=== PATIENT | male | born 1980 | race Caucasian/White ===

== ENCOUNTER 2017-01-08 17:14 | Inpatient (IN) | payer MEDICARE, OTHER ==
[~2017-01-08] VITALS: Ht 172.7 cm; Wt 85.9 kg
[~2017-01-08 17:14] MED LIST: DIVA250ER PO; LEVO125T4 PO; SERO300T PO; ZOLO100T PO
[2017-01-08 17:26] VITALS: BP 181/105; PULSE 100; RESP 15; TEMP 98.2; O2SAT 99
[2017-01-08 18:39] VITALS: BP 145/98; PULSE 111; RESP 20; TEMP 97.7; O2SAT 100
--- NOTE | 2017-01-08 19:01 | PD ---
HPI Chief Complaint: Psychiatric Symptoms Time Seen by Provider: 18:58 Travel History International Travel<30 days: No Contact w/Intl Traveler<30days: No Traveled to known affect area: No History of Present Illness HPI 36-year-old male that presents to the ED for evaluation of psych evaluation. Patient was [place] acted by police after apparently he made suicidal statements to his family. Patient states that he wants to . Patient has some history of anxiety and depression as well as some behavioral issues. Per patient he is compliant with medications. He states that he feels depressed and has suicidal ideation but no actual plan. He denies any homicidal ideation. He denies any recent injuries or cuts. He denies any other medical problems. No drugs or alcohol. No hallucinations. Per patient his symptoms are moderate. He has not seen a psychiatrist for this. Police was contacted and brought him here. Symptoms have been worsening for the past couple of days. PFSH Past Medical History Bipolar Disorder: Yes Depression: Yes Diminished Hearing: No Hiatal Hernia: Yes Thyroid Disease: Yes (HYPO) Past Surgical History Appendectomy: Yes Social History Alcohol Use: No Tobacco Use: No Substance Use: No (PATIENT DENIES) Allergies-Medications (Allergen,Severity, Reaction): Coded Allergies: No Known Allergies (Verified , 10/05/16) Reported Meds & Prescriptions Reported Meds & Active Scripts Active Reported Levothyroxine (Levothyroxine Sodium) 125 Mcg Tab 125 Mcg PO DAILY Zoloft (Sertraline HCl) 100 Mg Tab 100 Mg PO DAILY Seroquel (Quetiapine Fumarate) 300 Mg Tab 300 Mg PO DAILY Depakote ER (Divalproex Sodium) 250 Mg Criss 250 Mg PO DAILY Review of Systems General / Constitutional: No: Fever, Chills, Weight Gain, Weight Loss, Other Eyes: No: Diploplia, Blurred Vision, Photophobia, Drainage, Redness, Foreign Body Sensation, Pain, Tearing, Blind Spots, Visual changes, Blindness, Other HENT: No: Headaches, Vertigo, Lightheadedness, Sore Throat, Rhinitis, Rhinorrhea, Congestion, Nosebleed, Neck Stiffness, Neck Pain, Masses, Gingival Bleeding, Dental Difficulties, Ear Discharge, Earache, Other Cardiovascular: No: Chest Pain or Discomfort, Palpitations, Irregular Rhythm, Tachycardia, Diaphoresis, Syncope, Dyspnea on exertion, Varicosities, Edema, Cyanosis, Varicosities, Phlebitis, Claudication, Other Respiratory: No: Cough, Shortness of Breath, Wheezing, Sneezing, Orthopnea, Hemoptysis, Stridor, Night Sweats, Pleuritic Pain, Other Gastrointestinal: No: Nausea, Vomiting, Diarrhea, Abdominal Pain, Hematemesis, Hematochezia, Constipation, Changes in Bowel Habits, Indigestion, Dysphagia, Loss of Appetite, Other Genitourinary: No: Urgency, Frequency, Dysuria, Nocturia, Hematuria, Decreased Urinary Output, Oliguria, Hesitancy, Dribbling, Incontinence, Pelvic Pain, Flank Pain, Dyspareunia, Discharge, Dysmenorrhea, Menorrhagia, Metorrhagia, Vaginal Bleeding, Other Musculoskeletal: No: Myalgias, Arthralgias, Limited ROM, Weakness, Cramping, Edema, Pain, Atrophy, Other Skin: No Rash, No Itching, No Dryness, No Lumps, No Hives, No Change in Pigmentation, No Change in nails, No Alopecia, No Lesions, No Breast Lumps, No Breast Tenderness, No Breast Swelling, No Other Neurologic: No: Weakness, Dizziness, Syncope, Focal Abnormalities, Coordination Problem, Tremor, Ataxia, Headache, Change in Mentation, Slurred Speech, Paresthesia, Incontinence, Seizures, Sensory Disturbance, Other Psychiatric: Positive: Depression, Suicidal Ideations, Mood Disorder, No: Anxiety, Disorder of Thought, Substance Abuse, Homicidal Ideation, Other Endocrine: No: Heat Intolerance, Cold Intolerance, Polyuria, Polydipsia, Other Hematologic/Lymphatic: No: Easy Bruising, Lymph Node Enlargement, Other Physical Exam Narrative GENERAL: SKIN: Warm and dry. HEAD: Atraumatic. Normocephalic. EYES: Pupils equal and round. No scleral icterus. No injection or drainage. ENT: No nasal bleeding or discharge. Mucous membranes pink and moist. Tongue is midline. No uvula deviation. NECK: Trachea midline. No JVD. CARDIOVASCULAR: Regular rate and rhythm. No murmurs, S3, S4. RESPIRATORY: No accessory muscle use. Clear to auscultation. Breath sounds equal bilaterally. GASTROINTESTINAL: Abdomen soft, non-tender, nondistended. Hepatic and splenic margins not palpable. MUSCULOSKELETAL: Extremities without clubbing, cyanosis, or edema. No obvious deformities. Full range of motion of the upper and lower extremities bilaterally. 2+ pulses bilaterally. Neurovascular intact. NEUROLOGICAL: Awake and alert. No obvious cranial nerve deficits. Motor grossly within normal limits. Five out of 5 muscle strength in the arms and legs. Normal speech. PSYCHIATRIC: Depressed mood and affect; insight and judgment normal. Data Data Last Documented VS Vital Signs Date Time Temp Pulse Resp B/P Pulse Ox O2 Delivery O2 Flow Rate FiO2 01/08/17 18:39 97.7 111 20 145/98 100 Room Air Orders Complete Blood Count With Diff (01/08/17 17:49) Comprehensive Metabolic Panel (01/08/17 17:49) Psych Screen (01/08/17 17:49) Drug Screen, Random Urine (01/08/17 17:49) Alcohol (Ethanol) (01/08/17 17:49) Diet Regular Basic (01/08/17 Dinner) Labs Laboratory Tests Test 01/08/17 01/08/17 18:15 18:30 Urine Opiates Screen NEG Urine Barbiturates Screen NEG Urine Amphetamines Screen NEG Urine Benzodiazepines Screen POS Urine Cocaine Screen NEG Urine Cannabinoids Screen NEG White Blood Count 11.6 TH/MM3 Red Blood Count 4.53 MIL/MM3 Hemoglobin 13.6 GM/DL Hematocrit 39.8 % Mean Corpuscular Volume 87.8 FL Mean Corpuscular Hemoglobin 30.1 PG Mean Corpuscular Hemoglobin 34.3 % Concent Red Cell Distribution Width 13.0 % Platelet Count 220 TH/MM3 Mean Platelet Volume 9.5 FL Neutrophils (%) (Auto) 78.4 % Lymphocytes (%) (Auto) 16.4 % Monocytes (%) (Auto) 4.5 % Eosinophils (%) (Auto) 0.4 % Basophils (%) (Auto) 0.3 % Neutrophils # (Auto) 9.1 TH/MM3 Lymphocytes # (Auto) 1.9 TH/MM3 Monocytes # (Auto) 0.5 TH/MM3 Eosinophils # (Auto) 0.0 TH/MM3 Basophils # (Auto) 0.0 TH/MM3 CBC Comment AUTO DIFF Sodium Level 138 MEQ/L Potassium Level 4.1 MEQ/L Chloride Level 101 MEQ/L Carbon Dioxide Level 28.4 MEQ/L Anion Gap 9 MEQ/L Blood Urea Nitrogen 17 MG/DL Creatinine 1.16 MG/DL Estimat Glomerular Filtration 71 ML/MIN Rate Random Glucose 101 MG/DL Calcium Level 8.9 MG/DL Total Bilirubin 0.3 MG/DL Aspartate Amino Transf 15 U/L (AST/SGOT) Alanine Aminotransferase 32 U/L (ALT/SGPT) Alkaline Phosphatase 78 U/L Total Protein 8.5 GM/DL Albumin 4.3 GM/DL Ethyl Alcohol Level LESS THAN 3 MG/DL MDM Medical Decision Making Medical Screen Exam Complete: Yes Emergency Medical Condition: Yes Medical Record Reviewed: Yes Interpretation(s) CBC & BMP Diagram 01/08/17 18:30 Tox screen positive for benzos. LFTs within limits. Differential Diagnosis Depression versus suicidal ideation versus anxiety versus adjustment disorder versus mood disorder versus bipolar disorder versus schizophrenia versus paranoid disorder versus psychosis versus substance abuse versus alcohol abuse versus alcohol induced psychosis versus homicidality addition versus cutting versus personality disorder Narrative Course 36-year-old male that presents to the ED for evaluation of psych. Patient was properly examined and was found to have signs and symptoms consistent with psychiatric illness. No sign of acute medical distress. Labs were drawn. Patient will be medically clear. Okay to be seen by psych. Mental health screening was discussed with the patient. Diagnosis Primary Impression: Bipolar disorder Qualified Code: F31.32 - Bipolar affective disorder, currently depressed, moderate Jag Dominguez Jan 08, 2017 19:01
[2017-01-08 19:03] LABS: AMPHETAMINE, URINE NEG (NEG); BARBITURATES, URINE NEG (NEG); COCAINE, URINE NEG (NEG)
[2017-01-08 19:06] LABS: AUTOMATED NEUTROPHIL # 9.1 TH/MM3 (1.8-7.7); BASOPHIL % 0.3 % (0.0-2.0); EOSINOPHIL % 0.4 % (0.0-4.0); HEMATOCRIT 39.8 % (39.0-51.0); LYMPH % 16.4 % (9.0-44.0); LYMPHOCYTE # 1.9 TH/MM3 (1.0-4.8); MEAN CELL VOLUME 87.8 FL (80.0-100.0); MEAN CORPUSCULAR HEMOGLOBIN 30.1 PG (27.0-34.0); MEAN CORPUSCULAR HGB CONC 34.3 % (32.0-36.0); MONO % 4.5 % (0.0-8.0); NEUT % 78.4 % (16.0-70.0); PLATELET COUNT 220 TH/MM3 (150-450); RED BLOOD COUNT 4.53 MIL/MM3 (4.50-5.90); WHITE BLOOD COUNT 11.6 TH/MM3 (4.0-11.0)
[2017-01-08 19:08] LABS: HEMO FLAGS AUTO DIFF
[2017-01-08 19:10] LABS: ANION GAP 9 MEQ/L (5-15)
[2017-01-08 19:14] LABS: ALKALINE PHOSPHATASE 78 U/L (45-117); ALT (GPT) 32 U/L (12-78); AST (GOT) 15 U/L (15-37); BICARBONATE 28.4 MEQ/L (21.0-32.0); BLOOD UREA NITROGEN 17 MG/DL (7-18); CHLORIDE 101 MEQ/L (98-107); GLOMERULAR FILTRATION RATE 71 ML/MIN (>89); POTASSIUM 4.1 MEQ/L (3.5-5.1); SODIUM (NA) 138 MEQ/L (136-145); TOTAL BILIRUBIN ADULT 0.3 MG/DL (0.2-1.0)
[2017-01-08 19:51] LABS: PLATELET ESTIMATE SMEAR NORMAL (NORMAL); PLATELET MORPHOLOGY NORMAL (NORMAL); SCAN/DIFF AUTO DIFF CONFIRMED
[2017-01-08] MEDS ORDERED: QUEtiapine FUMARATE 200 MG TAB PO ONE (20:00)
[2017-01-08 22:31] VITALS: BP 163/97; PULSE 99; RESP 19; TEMP 97.4; O2SAT 97
[2017-01-09 02:57] VITALS: BP 157/73; PULSE 95; RESP 18; TEMP 97.6; O2SAT 98
[2017-01-09 06:14] VITALS: BP 166/88; PULSE 97; RESP 18; TEMP 97.2; O2SAT 97
--- NOTE | 2017-01-09 08:34 | HHI.HP ---
Provisional Diagnosis Admission Date 01/09/2017 Regent I. 1. Schizoaffective disorder Regent II. 1. Rule out borderline intellectual functioning Regent V. GAF is 30 presently Certification of Person's Competence To Provide Express and Informed Consent I have personally examined Edgar Chawla , a person being served at [facility] on, Jan 09, 2017 08:34. Express and informed consent means consent voluntarily given in writing, by a competent person, after sufficient explanation and disclosure of the subject matter involved to enable the person to make a knowing and willful decision without any element of force, fraud, deceit, duress, or other form of constraint or coercion. This person is 18 years of age or older, is not now known to be incompetent to consent to treatment with a guardian advocate, and does not have a health care surrogate or proxy currently making medical treatment decisions. I have found this person to be one of the following: [] Competent to provide express and informed consent, as defined above, for voluntary admission to this facility and is competent to provide express and informed consent for treatment. He/she has the consistent capacity to make well reasoned, willful, and knowing decisions concerning his or her medical or mental health treatment. The person fully and consistently understands the purpose of the admission for examination/placement and is fully capable of personally exercising all rights assured [place] [x] Incompetent to provide express and informed consent to voluntary admission, and this is incompetent to provide express and informed consent to treatment. The person must be transferred to involuntary status and a petition for a guardian advocate filed with the Circuit Court. [] Refusing to provide express and informed consent to voluntary admission but is competent to provide express and informed consent for treatment. The person must be discharged or transferred to involuntary status. Form shall be completed within 24 hours of a person's arrival at the receiving facility and filed in the clinical record of each person: 1. Admitted on a voluntary basis 2. Permitted to provide express and informed consent to his/her own treatment 3. Allowed to transfer from involuntary to voluntary status 4. Prior to permitting a person to consent to his or her own treatment after having been previously found incompetent to consent to treatment. History of Present Illness Capacity: Lacks Capacity HPI Mr. Chawla is a 36-year-old albino male with a reported history of bipolar disorder who presents under a Welsh act from [place] [employer] alleging that the patient said that he wanted to harm himself. Patient's floorman told the officer that he had laid in the middle of the road to try to kill himself. Reviewing the electronic medical record, I note the patient was seen most recently by nurse practitioner Mariano in September of last year. Patient seen and examined. Chart reviewed. Case discussed with nursing staff. On my examination today, the patient presents as somewhat lower functioning and perhaps has borderline intellectual functioning. He says that he was feeling suicidal because "the person that I live with was harassing me, treating me like a kid. They don't let me take my own medications. They do let me eat what I want. They don't let me buy toiletries like I want." He denies any homicidal ideation. His mood is described as "okay" but his sleep is reportedly poor. Affect is fairly childlike. He denies audiovisual hallucinations but appears frankly internally preoccupied and casts his eyes about the room appearing to look at invisible objects. He endorses feelings of thought manipulation but denies any paranoia or ideas of reference. No other depressive or hypomanic or manic symptoms noted. Remainder of the psychiatric ROS is negative. Past psychiatric history: Patient reports prior diagnosis of bipolar disorder. He is not sure who he follows for psychiatric care. He reports his most recent psychiatric admission was in [place]. He reports prior suicide attempts by running into the street and also trying to cut himself. Family history: Patient endorses a family history of depression and also notes that his sister tried to kill herself. Chemical dependency history: Patient denies a history of abuse of drugs or alcohol. Social history: Patient reports that he lives at home with a floorman. He is single with no children. He says that he has a college education but can't remember what degree he was working towards. He is presently on disability. He endorses a history of simple battery charges. No reported access to guns or firearms. Nursing staff has reached out to patient's caregiver Maricruz Nava, and apparently patient's behavior has been fairly disturbed at home. Ms. Nava is willing to have him back in the home once psychiatrically stabilized but does not feel that he is safe to return there now. Review of Systems ROS Limitations: Psychotic, Poor Historian Other No reported headache, vision or hearing changes, chest pain, shortness of breath , bowel or bladder issues. No other somatic complaints. Past Family Social History Coded Allergies: No Known Allergies (Verified , 10/05/16) Past Medical History See electronic medical record Reported Medications Levothyroxine 125 Mcg [id number] Mcg PO DAILY #30 TAB Ref 0 10/05/16 Sertraline (Zoloft)100 Mg [id number] Mg PO DAILY #30 TAB Ref 0 10/05/16 Quetiapine (Seroquel)300 Mg [id number] Mg PO DAILY #30 TAB Ref 0 10/05/16 Divalproex ER (Depakote ER)250 Mg [id number] Mg PO DAILY #30 10/05/16 Current Medications Medications (Trade) Dose Ordered Sig/Iam Route Start Time Stop Time Status Last Admin (Habitrol 21 Mg Patch.24 Hr) 1 patch DAILY T-DERMAL 01/09/17 09:00 UNV (Cogentin) 1 mg Q12H PRN PO 01/09/17 08:45 UNV (Cogentin Inj) 1 mg Q12H PRN IM 01/09/17 08:45 UNV Physical Exam Physical examination completed by ED provider. On my examination today, the patient is a well-nourished, well-developed albino male in no acute physical distress. No motoric abnormalities noted. Labs and vital signs reviewed: Vital Signs Vital Signs Date Time Temp Pulse Resp B/P Pulse Ox O2 Delivery O2 Flow Rate FiO2 01/09/17 06:14 97.2 97 18 166/88 97 Room Air Lab Results Item Value Date Time White Blood Count 11.6 TH/MM3 H 01/08/17 1830 Hemoglobin 13.6 GM/DL 01/08/17 183 Platelet Count 220 TH/MM3 01/08/17 183 Sodium Level 138 MEQ/L 01/08/17 1830 Potassium Level 4.1 MEQ/L 01/08/17 183 Chloride Level 101 MEQ/L 01/08/17 183 Blood Urea Nitrogen 17 MG/DL 01/08/17 1830 Creatinine 1.16 MG/DL 01/08/17 1830 Aspartate Amino Transf (AST/SGOT) 15 U/L 01/08/17 1830 Alanine Aminotransferase (ALT/SGPT) 32 U/L 01/08/171829 Alkaline Phosphatase 78 U/L 01/08/171829 Urine Benzodiazepines Screen POS H 01/08/171814 Ethyl Alcohol Level LESS THAN 3 MG/DL 01/08/171829 Mental Status Examination Patient is in hospital gown. He is somewhat disheveled but appears to be maintaining basic hygiene. He is awake and alert and oriented to person and the hospital. No motoric abnormalities noted. Speech is somewhat rambling but within normal limits for rate, tone and volume. Language and fund of knowledge seemed perhaps slightly below average. Mood is described as okay and affect is childlike. Thought process circumstantial, at times tangential. Associations somewhat loose. Endorses feelings of thought manipulation. Denies audiovisual hallucinations but appears internally preoccupied. Endorses suicidal ideation as noted above although he has no current urge to injure himself on the inpatient psychiatric unit. No homicidal ideation. Insight and judgment are poor. Assessment & Plan Problem List: (1) Other schizoaffective disorders ICD Code: F25.8 Assessment & Plan This is a 36-year-old male with psychiatric history as detailed above who presents under a Welsh act alleging threats of self-harm. The patient endorses suicidal ideation along with feelings of thought manipulation. He appears internally stimulated. I wonder about his interepisodic level of functioning and suspect that he may suffer from a schizoaffective disorder and I have placed this is a provisional diagnosis. In any event, the patient requires psychiatric admission at this time for safety, observation and stabilization. Admit inpatient. Involuntary status. I've completed first opinion. Consult for second opinion. Request healthcare surrogate and guardian advocate. Consult of the hospitalist for medical management. I have asked the nursing staff to clarify patient's home medications so that we may resume and adjust these. Ativan as needed for anxiety, Cogentin as needed for EPS, Benadryl as needed for sleep. Vitals every shift. Counselor to see. Disposition planning. Estimated length of stay: 7-9 days. Discharge Planning Pending psychiatric stabilization Request HC Surrog/Guard Advoc?: Yes Alex Cross MD Jan 09, 2017 08:34
[2017-01-09] MEDS ORDERED: diphenhydrAMINE HCL 50 MG CAP PO PRN (08:45)
[2017-01-09] MEDS ORDERED: LORazepam 2 MG/ML VIAL IM PRN (08:45)
[2017-01-09] MEDS ORDERED: MAGNESIUM HYDROXIDE SUSP 30 ML CUP PO PRN (08:45)
[2017-01-09] MEDS ORDERED: BENZTROPINE MESYLATE 2 MG/2 ML VIAL IM PRN (08:45)
[2017-01-09] MEDS ORDERED: ACETAMINOPHEN 325 MG TAB PO PRN (08:45)
[2017-01-09] MEDS ORDERED: ALUMINUM/MAGNESIUM/SIMETH 30 ML CUP PO PRN (08:45)
[2017-01-09] MEDS ORDERED: BENZTROPINE MESYLATE 1 MG TAB PO PRN (08:45)
[2017-01-09] MEDS: NICOTINE 21 MG/24 HR PATCH T-DERMAL SCH (09:00)
[2017-01-09] MEDS: REMOVE OLD NICOTINE PATCH T-DERMAL SCH (09:00)
[2017-01-09 10:00] VITALS: BP 137/83; PULSE 113
[2017-01-09 11:07] VITALS: BP 137/83
[2017-01-09 11:15] VITALS: BP 162/82; PULSE 108; RESP 18; TEMP 97.5; O2SAT 96
[2017-01-09 14:18] LABS: FREE T4 0.71 NG/DL (0.76-1.46)
[2017-01-09] MEDS ORDERED: FLUMAZENIL 0.5 MG/5 ML VIAL IV PUSH PRN (16:45)
[2017-01-09] MEDS ORDERED: LORazepam 2 MG TAB PO PRN (16:45)
[2017-01-09] MEDS ORDERED: LORazepam 1 MG TAB PO PRN (16:45)
[2017-01-09] MEDS ORDERED: LORazepam 2 MG/ML VIAL IV PUSH PRN ×4 (16:45)
--- NOTE | 2017-01-09 17:10 | PD.CONS ---
HPI Service [facility] Consult Requested By Psychiatric services Reason for Consult Medical management including hypertension Primary Care Physician No Primary Care Physician Diagnoses: History of Present Illness This is a 36-year-old male patient with a past medical history which includes mentally handicapped, bipolar, hypothyroidism. Information gathered from patient as well as prior computerized charting. [facility] we have been consulted for assistance with medical management including hypertension. Blood pressures ranged from 166/88-137/83. Patient denies headaches changes in vision. Patient reports he is doing well offers no specific medical complaints at this time. Patient denies fevers chills nausea vomiting diarrhea constipation. Review of Systems Except as stated in HPI: all other systems reviewed are Neg Past Family Social History Allergies: Coded Allergies: No Known Allergies (Verified , 10/05/16) Past Medical History Mentally handicapped Past Surgical History Hernia repair and appendectomy Reported Medications Levothyroxine (Levothyroxine Sodium) 125 Mcg Tab 125 Mcg PO DAILY Zoloft (Sertraline HCl) 100 Mg Tab 100 Mg PO DAILY Seroquel (Quetiapine Fumarate) 300 Mg Tab 300 Mg PO DAILY Depakote ER (Divalproex Sodium) 250 Mg Criss 250 Mg PO DAILY Active Ordered Medications Current Medications Medications (Trade) Dose Ordered Sig/Iam Route Start Time Stop Time Status Last Admin (Ativan) 1 mg Q6H PRN PO 01/09/17 08:45 (Ativan Inj) 1 mg Q6H PRN IM 01/09/17 08:45 (Benadryl) 50 mg HS PRN PO 01/09/17 08:45 (Tylenol) 650 mg Q4H PRN PO 01/09/17 08:45 (Milk Of Magnesia Liq) 30 ml DAILY PRN PO 01/09/17 08:45 (Mag-Al Plus Susp Liq) 30 ml Q6H PRN PO 01/09/17 08:45 (Habitrol 21 Mg Patch.24 Hr) 1 patch DAILY T-DERMAL 01/09/17 09:00 (Cogentin) 1 mg Q12H PRN PO 01/09/17 08:45 (Cogentin Inj) 1 mg Q12H PRN IM 01/09/17 08:45 Miscellaneous Information 1 DAILY T-DERMAL 01/09/17 09:00 (Synthroid) 125 mcg DAILY@06 PO 01/10/17 06:00 (Romazicon Inj) 0.2 mg Q1M PRN IV PUSH 01/09/17 16:45 (Ativan) 1 mg Q4H PRN PO 01/09/17 16:45 (Ativan Inj) 1 mg Q4H PRN IV PUSH 01/09/17 16:45 (Ativan) 2 mg Q2H PRN PO 01/09/17 16:45 (Ativan Inj) 2 mg Q2H PRN IV PUSH 01/09/17 16:45 (Ativan Inj) 2 mg Q1H PRN IV PUSH 01/09/17 16:45 (Ativan Inj) 2 mg Q15M PRN IV PUSH 01/09/17 16:45 Family History Mother is alive and healthy Father is 71 has had 2 heart attacks Social History Patient denies EtOH use tobacco use or illicit drug use Physical Exam Vital Signs Vital Signs Date Time Temp Pulse Resp B/P Pulse Ox O2 Delivery O2 Flow Rate FiO2 01/09/17 11:15 97.5 108 18 162/82 96 01/09/17 11:07 137/83 01/09/17 10:00 113 137/83 Room Air 01/09/17 06:14 97.2 97 18 166/88 97 Room Air 01/09/17 02:57 97.6 95 18 157/73 98 Room Air 01/08/17 22:31 97.4 99 19 163/97 97 Room Air 01/08/17 18:39 97.7 111 20 145/98 100 Room Air Physical Exam GENERAL: This is a well-nourished, well-developed patient, mentally handicapped 36-year-old patient, in no apparent distress. SKIN: No rashes, ecchymoses or lesions. Cool and dry. EYES: Extraocular motions intact. No scleral icterus. No injection or drainage. CARDIOVASCULAR: Regular rate and rhythm without murmurs, gallops, or rubs. RESPIRATORY: Clear to auscultation. Breath sounds equal bilaterally. No wheezes , rales, or rhonchi. GASTROINTESTINAL: Abdomen soft, non-tender, nondistended. MUSCULOSKELETAL: Extremities without clubbing, cyanosis, or edema. No joint tenderness, effusion, or edema noted. No calf tenderness. Negative Homans sign bilaterally. NEUROLOGICAL: Awake and alert. Motor and sensory grossly within normal limits. Five out of 5 muscle strength in all muscle groups. Slightly slowed speech. Laboratory Laboratory Tests Test 01/08/17 01/08/17 01/09/17 18:15 18:30 13:30 Urine Opiates Screen NEG Urine Barbiturates Screen NEG Urine Amphetamines Screen NEG Urine Benzodiazepines Screen POS Urine Cocaine Screen NEG Urine Cannabinoids Screen NEG White Blood Count 11.6 Red Blood Count 4.53 Hemoglobin 13.6 Hematocrit 39.8 Mean Corpuscular Volume 87.8 Mean Corpuscular Hemoglobin 30.1 Mean Corpuscular Hemoglobin 34.3 Concent Red Cell Distribution Width 13.0 Platelet Count 220 Mean Platelet Volume 9.5 Neutrophils (%) (Auto) 78.4 Lymphocytes (%) (Auto) 16.4 Monocytes (%) (Auto) 4.5 Eosinophils (%) (Auto) 0.4 Basophils (%) (Auto) 0.3 Neutrophils # (Auto) 9.1 Lymphocytes # (Auto) 1.9 Monocytes # (Auto) 0.5 Eosinophils # (Auto) 0.0 Basophils # (Auto) 0.0 CBC Comment AUTO DIFF Differential Comment AUTO DIFF CONFIRMED Platelet Estimate NORMAL Platelet Morphology Comment NORMAL Sodium Level 138 Potassium Level 4.1 Chloride Level 101 Carbon Dioxide Level 28.4 Anion Gap 9 Blood Urea Nitrogen 17 Creatinine 1.16 Estimat Glomerular Filtration 71 Rate Random Glucose 101 Calcium Level 8.9 Total Bilirubin 0.3 Aspartate Amino Transf 15 (AST/SGOT) Alanine Aminotransferase 32 (ALT/SGPT) Alkaline Phosphatase 78 Total Protein 8.5 Albumin 4.3 Ethyl Alcohol Level LESS THAN 3 Free Thyroxine 0.71 Thyroid Stimulating Hormone 1.430 3rd Gen Result Diagram: 01/08/17182901/08/171829 Assessment and Plan Assessment and Plan This is a 36-year-old male patient with a past medical history which includes mentally handicapped, bipolar, hypothyroidism. Information gathered from patient as well as prior computerized charting. [facility] have been consulted for assistance with medical management including hypertension. Bipolar management per psychiatric team Hypertension will start clonidine 0.1 mg every 8 hours monitor for hypotension Hypertension may be related to anxiety Hypothyroidism continue Synthroid TSH and T4 pending DVT prophylaxis patient is ambulatory Discussed plan of care with patient and Dr. Herr Discussed Condition With The exam, history, and the medical decision-making described in the above note were completed with the assistance of the mid-level provider. I reviewed and agree with the findings presented. I attest that I had a [id number] encounter with the patient on the same day, and personally performed and documented my assessment and findings in the medical record. Augustina Brown Jan 09, 2017 17:10 Larry Herr MD Jan 18, 2017 14:26
[2017-01-09] MEDS: cloNIDine HCL 0.1 MG TAB PO SCH ×2 (17:15→21:47)
[2017-01-09 19:38] VITALS: BP 142/76; PULSE 110; RESP 16; TEMP 97.8; O2SAT 95
[2017-01-10] MEDS: LORazepam 1 MG TAB PO PRN (00:10)
[2017-01-10] MEDS: LEVOTHYROXINE SODIUM 125 MCG TAB PO SCH (05:37)
[2017-01-10] MEDS: cloNIDine HCL 0.1 MG TAB PO SCH ×3 (05:37→21:08)
[2017-01-10 05:49] VITALS: BP 128/61; PULSE 94; RESP 16; O2SAT 98
[2017-01-10 07:09] LABS: AUTOMATED NEUTROPHIL # 4.1 TH/MM3 (1.8-7.7); BASOPHIL # 0.1 TH/MM3 (0-0.2); BASOPHIL % 0.7 % (0.0-2.0); EOSINOPHIL # 0.2 TH/MM3 (0-0.4); EOSINOPHIL % 2.1 % (0.0-4.0); HEMATOCRIT 38.6 % (39.0-51.0); HEMO FLAGS DIFF FINAL; LYMPH % 37.1 % (9.0-44.0); LYMPHOCYTE # 2.9 TH/MM3 (1.0-4.8); MEAN CELL VOLUME 87.8 FL (80.0-100.0); MEAN CORPUSCULAR HEMOGLOBIN 30.1 PG (27.0-34.0); MEAN CORPUSCULAR HGB CONC 34.2 % (32.0-36.0); MONO % 8.1 % (0.0-8.0); PLATELET COUNT 266 TH/MM3 (150-450); RED BLOOD COUNT 4.39 MIL/MM3 (4.50-5.90); RED CELL DISTRIBUTION WIDTH 12.9 % (11.6-17.2); WHITE BLOOD COUNT 7.9 TH/MM3 (4.0-11.0)
[2017-01-10 07:37] LABS: ANION GAP 9 MEQ/L (5-15); BICARBONATE 25.4 MEQ/L (21.0-32.0); BLOOD UREA NITROGEN 18 MG/DL (7-18); CHLORIDE 103 MEQ/L (98-107); GLOMERULAR FILTRATION RATE 69 ML/MIN (>89); POTASSIUM 4.4 MEQ/L (3.5-5.1); SODIUM (NA) 137 MEQ/L (136-145)
[2017-01-10 07:39] LABS: HDL CHOLESTEROL 44.7 MG/DL (40.0-60.0); LDL CHOLESTEROL 119 MG/DL (0-99)
[2017-01-10] MEDS: NICOTINE 21 MG/24 HR PATCH T-DERMAL SCH (09:00)
[2017-01-10] MEDS: REMOVE OLD NICOTINE PATCH T-DERMAL SCH (09:00)
[2017-01-10 09:40] LABS: HEMOGLOBIN A1a 0.9 %; HEMOGLOBIN A1b 2.1 %; HEMOGLOBIN Ao 84.8 %; HEMOGLOBIN LA1C 2.1 %; HEMOGLOBIN P3 3.9 %
--- NOTE | 2017-01-10 13:36 | HHI.PYPN ---
Subjective Remarks Patient was seen and case discussed with nursing. Patient is pleasant and cooperative with exam. Intellectual dysfunction is evident during exam. Patient describes suicidal ideation before admission but denies it today. Behaving well on the unit. 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 Objective Alert: Yes [place]: Person, Place, Date Mood: Depressed Affect: Blunted Memory Intact: Immediate Hallucinations: Other Delusions: No Delusion Type: Other Suicidal: Ideation (denies) Homicidal: Ideation (denies) Insight/Judgement Poor Labs Test 01/10/17 06:51 White Blood Count 7.9 TH/MM3 Red Blood Count 4.39 MIL/MM3 Hemoglobin 13.2 GM/DL Hematocrit 38.6 % Mean Corpuscular Volume 87.8 FL Mean Corpuscular Hemoglobin 30.1 PG Mean Corpuscular Hemoglobin 34.2 % Concent Red Cell Distribution Width 12.9 % Platelet Count 266 TH/MM3 Mean Platelet Volume 8.2 FL Neutrophils (%) (Auto) 52.0 % Lymphocytes (%) (Auto) 37.1 % Monocytes (%) (Auto) 8.1 % Eosinophils (%) (Auto) 2.1 % Basophils (%) (Auto) 0.7 % Neutrophils # (Auto) 4.1 TH/MM3 Lymphocytes # (Auto) 2.9 TH/MM3 Monocytes # (Auto) 0.6 TH/MM3 Eosinophils # (Auto) 0.2 TH/MM3 Basophils # (Auto) 0.1 TH/MM3 CBC Comment DIFF FINAL Differential Comment Sodium Level 137 MEQ/L Potassium Level 4.4 MEQ/L Chloride Level 103 MEQ/L Carbon Dioxide Level 25.4 MEQ/L Anion Gap 9 MEQ/L Blood Urea Nitrogen 18 MG/DL Creatinine 1.19 MG/DL Estimat Glomerular Filtration 69 ML/MIN Rate Random Glucose 102 MG/DL Hemoglobin A1c 5.7 % Calcium Level 9.1 MG/DL Triglycerides Level 282 MG/DL Cholesterol Level 220 MG/DL LDL Cholesterol 119 MG/DL HDL Cholesterol 44.7 MG/DL Cholesterol/HDL Ratio 4.92 RATIO Vitals/IOs Vital Signs Date Time Temp Pulse Resp B/P Pulse Ox O2 Delivery O2 Flow Rate FiO2 01/10/17 05:49 94 16 128/61 98 01/09/17 19:38 97.8 01/09/17 10:00 Room Air Assessment & Plan Problem List: (1) Other schizoaffective disorders ICD Code: F25.8 Assessment & Plan Continue current treatment plan Justification for Cont. Inpt. Patient will decompensate in a less restrictive setting Request HC Surrog/Guard Advoc?: Yes Melvin Reyna DO Jan 10, 2017 13:36
[2017-01-10 19:44] VITALS: BP 125/57; PULSE 96; RESP 18; TEMP 98.1; O2SAT 97
[2017-01-11 05:49] VITALS: BP 138/75; PULSE 99; RESP 17; TEMP 97.6; O2SAT 97
[2017-01-11] MEDS: cloNIDine HCL 0.1 MG TAB PO SCH ×3 (06:00→21:32)
[2017-01-11] MEDS: LEVOTHYROXINE SODIUM 125 MCG TAB PO SCH (06:00)
[2017-01-11] MEDS: NICOTINE 21 MG/24 HR PATCH T-DERMAL SCH (08:18)
[2017-01-11] MEDS: REMOVE OLD NICOTINE PATCH T-DERMAL SCH (08:19)
--- NOTE | 2017-01-11 11:59 | HHI.PYPN ---
Subjective Remarks Patient seen and examined with counselor and nursing staff. Chart reviewed. Case discussed with nursing staff who reports patient has been no behavioral problem. Nursing staff has obtain medication list from patient's caregiver but notes there are no benzodiazepines on the list. On my examination today, the patient seems to be in fairly good spirits. He remains somewhat childlike. He is calm and pleasant. He says that he has been writing out his coping skills. He denies suicidal or homicidal ideation. Denies audiovisual hallucinations. Denies side effects from medications. Review of Systems ROS Limitations: Poor Historian Other No somatic complaints today. Objective Alert: Yes [place]: Person, Place, Date Mood: Calm Affect: Euthymic (childlike) Memory Intact: Comment (Fair) Hallucinations: Other (Denies AVH) Delusions: No Delusion Type: Other (No delusions) Suicidal: Ideation (Denies SI) Homicidal: Ideation (Denies HI) Insight/Judgement Poor Remarks No abnormal motor movements noted. Labs Labs reviewed. Vitals/IOs Vital Signs Date Time Temp Pulse Resp B/P Pulse Ox O2 Delivery O2 Flow Rate FiO2 01/11/17 05:49 97.6 99 17 138/75 97 01/09/17 10:00 Room Air Assessment & Plan Problem List: (1) Other schizoaffective disorders ICD Code: F25.8 Assessment & Plan Resume home medications as prescribed including Seroquel, Haldol, Zoloft, Keppra , Synthroid. Seizure precautions. Nursing staff to clarify whether benzodiazepines are a part of his regimen. Justification for Cont. Inpt. Monitoring for impairments in safety. Risk for decompensation. Discharge Planning Pending psychiatric stabilization. Request HC Surrog/Guard Advoc?: Yes Alex Cross MD Jan 11, 2017 11:59
--- NOTE | 2017-01-11 13:52 | HHI.PR ---
Subjective Remarks Follow-up hypertension. Patient reports feeling well overall. Patient denies headaches changes in vision. Patient reports he is doing well offers no specific medical complaints at this time. Patient denies fevers chills nausea vomiting diarrhea constipation. Objective Vitals Vital Signs Date Time Temp Pulse Resp B/P Pulse Ox O2 Delivery O2 Flow Rate FiO2 01/11/17 05:49 97.6 99 17 138/75 97 01/10/17 19:44 98.1 96 18 125/57 97 Result Diagram: 01/10/17 0651 01/10/17 0651 Objective Remarks GENERAL: This is a well-nourished, well-developed patient, mentally handicapped 36-year-old patient, in no apparent distress. SKIN: No rashes, ecchymoses or lesions. Cool and dry. EYES: Extraocular motions intact. No scleral icterus. No injection or drainage. CARDIOVASCULAR: Regular rate and rhythm without murmurs, gallops, or rubs. RESPIRATORY: Clear to auscultation. Breath sounds equal bilaterally. No wheezes , rales, or rhonchi. GASTROINTESTINAL: Abdomen soft, non-tender, nondistended. MUSCULOSKELETAL: Extremities without clubbing, cyanosis, or edema. No joint tenderness, effusion, or edema noted. No calf tenderness. Negative Homans sign bilaterally. NEUROLOGICAL: Awake and alert. Motor and sensory grossly within normal limits. Five out of 5 muscle strength in all muscle groups. Slightly slowed speech. A/P Assessment and Plan This is a 36-year-old male patient with a past medical history which includes mentally handicapped, bipolar, hypothyroidism. Information gathered from patient as well as prior computerized charting. [facility] have been consulted for assistance with medical management including hypertension. Bipolar management per psychiatric team Hypertension- improved clonidine 0.1 mg every 8 hours monitor for hypotension Hypothyroidism continue Synthroid DVT prophylaxis patient is ambulatory Discussed plan of care with patient and RN Patient medically stable at this point will sign off Recommend patient follow up with PCP after discharge Written by Augustina Brown, acting as scribe for Dr. Golden on 01/11/17 at 13:52. The documentation accurately reflects the work performed [id number] by me on at 16:47. Augustina Brown Jan 11, 2017 13:52 Guille Golden MD Jan 11, 2017 16:47
[2017-01-11] MEDS ORDERED: LEVE500 PO (13:56)
[2017-01-11] MEDS: levETIRAcetam 500 MG TAB PO SCH ×2 (14:45→21:32)
[2017-01-11] MEDS ORDERED: DEPA500T3 PO (15:11)
[2017-01-11] MEDS ORDERED: HALO0.5T PO (15:12)
[2017-01-11] MEDS ORDERED: QUET1TAB11 PO (15:13)
[2017-01-11 17:58] VITALS: BP 120/71; PULSE 97; RESP 18; TEMP 98; O2SAT 97
[2017-01-11] MEDS: QUEtiapine FUMARATE 200 MG TAB PO SCH (21:32)
[2017-01-11] MEDS: HALOPERIDOL 0.5 MG TAB PO SCH (21:32)
[2017-01-11] MEDS: DIVALPROEX SODIUM E.R. 500 MG TAB PO SCH (21:32)
[2017-01-12 05:31] VITALS: BP 128/66; PULSE 66; RESP 18; TEMP 97.3; O2SAT 98
[2017-01-12] MEDS: LEVOTHYROXINE SODIUM 112 MCG TAB PO SCH (05:54)
[2017-01-12] MEDS: cloNIDine HCL 0.1 MG TAB PO SCH ×3 (05:54→20:35)
[2017-01-12] MEDS: levETIRAcetam 500 MG TAB PO SCH ×2 (08:58→20:35)
[2017-01-12] MEDS: DIVALPROEX SODIUM E.R. 250 MG TAB PO SCH (08:58)
[2017-01-12] MEDS: HALOPERIDOL 0.5 MG TAB PO SCH ×2 (08:58→20:35)
[2017-01-12] MEDS: QUEtiapine FUMARATE 200 MG TAB PO SCH ×2 (08:58→20:35)
[2017-01-12] MEDS: SERTRALINE HCL 100 MG TAB PO SCH (08:58)
[2017-01-12] MEDS: REMOVE OLD NICOTINE PATCH T-DERMAL SCH (09:00)
[2017-01-12] MEDS: NICOTINE 21 MG/24 HR PATCH T-DERMAL SCH (09:00)
--- NOTE | 2017-01-12 12:57 | HHI.PYPN ---
Subjective Remarks Patient seen and examined with counselor. Chart reviewed. Case discussed with nursing staff, counselor an occupational therapist in treatment team. Per nursing staff, no real behavioral problem. Per occupational therapist patient seems appropriate in groups. On my examination today, the patient complains that his Seroquel as it is currently dosed is too sedating. He says that he normally takes the bulk of the dose at night. He denies any suicidal ideation or AVH. Remains a little bit irritable. No evidence side effects from medications. Review of Systems ROS Limitations: Poor Historian Other Besides the grogginess, no somatic complaints today Objective Alert: Yes [place]: Person, Place, Date Mood: Calm Affect: Other (slightly irritable) Memory Intact: Comment (Fair) Hallucinations: Other (Denies AVH) Delusions: No Delusion Type: Other (no evident delusions) Suicidal: Ideation (Denies SI) Homicidal: Ideation (no homicidal ideation) Insight/Judgement Poor Remarks No abnormal motor movements noted Labs Labs reviewed. No new labs. Vitals/IOs Vital Signs Date Time Temp Pulse Resp B/P Pulse Ox O2 Delivery O2 Flow Rate FiO2 01/12/17 05:31 97.3 66 18 128/66 98 01/09/17 10:00 Room Air Assessment & Plan Problem List: (1) Other schizoaffective disorders ICD Code: F25.8 Assessment & Plan Estimated LOS: days adjust Seroquel dosing to place the bulk of the dose at night. Continue other medications and care as ordered. Appreciate hospitalist database consultant input. Justification for Cont. Inpt. Monitoring for impairments in safety. Medication changes. Discharge Planning Counselor to reach out to caregiver. Request HC Surrog/Guard Advoc?: Yes Alex Cross MD Jan 12, 2017 12:57
[2017-01-12 14:00] VITALS: BP 115/64; PULSE 96
[2017-01-12] MEDS: DIVALPROEX SODIUM E.R. 500 MG TAB PO SCH (20:35)
[2017-01-13] MEDS: LEVOTHYROXINE SODIUM 112 MCG TAB PO SCH (06:00)
[2017-01-13] MEDS: cloNIDine HCL 0.1 MG TAB PO SCH ×3 (06:00→21:09)
[2017-01-13 06:11] VITALS: BP 130/74; PULSE 90; RESP 18; TEMP 98.1; O2SAT 100
[2017-01-13] MEDS: NICOTINE 21 MG/24 HR PATCH T-DERMAL SCH (09:00)
[2017-01-13] MEDS: REMOVE OLD NICOTINE PATCH T-DERMAL SCH (09:00)
[2017-01-13] MEDS: levETIRAcetam 500 MG TAB PO SCH ×2 (09:57→21:09)
[2017-01-13] MEDS: HALOPERIDOL 0.5 MG TAB PO SCH ×2 (09:58→21:09)
[2017-01-13] MEDS: QUEtiapine FUMARATE 200 MG TAB PO SCH ×2 (09:58→21:10)
[2017-01-13] MEDS: DIVALPROEX SODIUM E.R. 250 MG TAB PO SCH (09:58)
[2017-01-13] MEDS: SERTRALINE HCL 100 MG TAB PO SCH (09:58)
--- NOTE | 2017-01-13 12:39 | HHI.PYPN ---
Subjective Remarks Patient seen and examined with counselor. Chart reviewed. Case discussed with nursing staff. Patient has been no behavioral problem on the unit. On my examination today, the patient apologizes for his behavior that led him to be hospitalized here in the first place. He is in good spirits and is particularly pleased to know that he will be transferred to the lower acuity 2600 unit today. He denies any suicidal or homicidal ideation. Denies any audiovisual hallucinations. Pleased with adjustment and Seroquel dosing to place the bulk of the dose at night. Denies side effects from medications. No other issues noted. Review of Systems Other No physical complaints today. Objective Alert: Yes [place]: Person, Place, Date Mood: Calm Affect: Euthymic Memory Intact: Comment (Remains fair on clinical exam) Hallucinations: Other (denies audiovisual hallucinations) Delusions: No Delusion Type: Other (no delusional material) Suicidal: Ideation (denies suicidal ideation) Homicidal: Ideation (denies homicidal ideation) Insight/Judgement Fair Remarks No abnormal motor movements noted Labs Labs reviewed. No new labs. Vitals/IOs Vital Signs Date Time Temp Pulse Resp B/P Pulse Ox O2 Delivery O2 Flow Rate FiO2 01/13/17 06:11 98.1 90 18 130/74 100 01/09/17 10:00 Room Air Assessment & Plan Problem List: (1) Other schizoaffective disorders ICD Code: F25.8 Assessment & Plan Continue current psychotropics as ordered. Continue other medications and care as ordered. Patient seems to be doing well without any ongoing behavioral disturbance. Counselor to look into transitioning patient back to outpatient level of care. Justification for Cont. Inpt. Discharge planning Discharge Planning Anticipate discharge within the next day or 2 Request HC Surrog/Guard Advoc?: Yes Alex Cross MD Jan 13, 2017 12:39
[2017-01-13 18:56] VITALS: BP 104/67; PULSE 96; RESP 18; TEMP 98.1; O2SAT 98
[2017-01-13] MEDS: DIVALPROEX SODIUM E.R. 500 MG TAB PO SCH (21:09)
[2017-01-14 05:02] VITALS: BP 106/67; PULSE 88; RESP 18; TEMP 98.5; O2SAT 99
[2017-01-14] MEDS: cloNIDine HCL 0.1 MG TAB PO SCH ×3 (06:00→21:36)
[2017-01-14] MEDS: LEVOTHYROXINE SODIUM 112 MCG TAB PO SCH (06:07)
[2017-01-14] MEDS: SERTRALINE HCL 100 MG TAB PO SCH (08:49)
[2017-01-14] MEDS: levETIRAcetam 500 MG TAB PO SCH ×2 (08:50→21:36)
[2017-01-14] MEDS: DIVALPROEX SODIUM E.R. 250 MG TAB PO SCH ×2 (08:50→21:36)
[2017-01-14] MEDS: HALOPERIDOL 0.5 MG TAB PO SCH ×2 (08:50→21:36)
[2017-01-14] MEDS: QUEtiapine FUMARATE 200 MG TAB PO SCH ×2 (08:50→21:36)
[2017-01-14 14:23] VITALS: BP 103/72; PULSE 83; RESP 14; O2SAT 98
--- NOTE | 2017-01-14 14:54 | HHI.PYPN ---
Subjective Remarks Patient seen and examined. Chart reviewed. Case discussed with nursing staff. Case discussed with counselor who has reached out the patient's journalism teacher who would be ready to accept the patient home on Wednesday. On my examination today, patient seems a little terse and irritable. He apparently refused his Seroquel this morning, and he tells me now that he finds it too sedating. He is willing to take Seroquel at night. No SI/HI. No side effects from medications otherwise. Review of Systems ROS Limitations: Poor Historian Other Except as above, no physical complaints. Objective Alert: Yes [place]: Person, Place Mood: Calm Affect: Restricted (somewhat irritable) Memory Intact: Comment (Remains fair on clinical exam) Hallucinations: Other (No AVH) Delusions: No Delusion Type: Other (No delusions) Suicidal: Ideation (No SI) Homicidal: Ideation (No HI) Insight/Judgement Poor Remarks No abnormal motor movements noted. Labs Labs reviewed. Vitals/IOs Vital Signs Date Time Temp Pulse Resp B/P Pulse Ox O2 Delivery O2 Flow Rate FiO2 01/14/17 14:23 83 14 103/72 98 01/14/17 05:02 98.5 Assessment & Plan Problem List: (1) Other schizoaffective disorders ICD Code: F25.8 Assessment & Plan Patient seems quite resistant to taking Seroquel in the morning. I am reluctant to give him 800 mg at bedtime as this is quite a large dose. I will discontinue the morning dose of Seroquel and instead titrate the morning dose of Depakote to try to manage his irritability. Plan to check a Depakote level after the weekend, although his weight would suggest that he could tolerate quite a bit more than we would be placing him on. Continue other medications and care as ordered. Justification for Cont. Inpt. Medication changes. Discharge Planning Service Desk Specialist will be able to take the patient back on Wednesday per counselor. Request HC Surrog/Guard Advoc?: Yes Alex Cross MD Jan 14, 2017 14:54
[2017-01-14 18:30] VITALS: BP 124/79; PULSE 87; RESP 18; TEMP 97.6; O2SAT 99
[2017-01-14 18:39] VITALS: BP 124/79; PULSE 87; RESP 18; TEMP 97.6; O2SAT 66
[2017-01-15 05:08] VITALS: BP 115/57; PULSE 78; RESP 18; TEMP 98.7; O2SAT 99
[2017-01-15] MEDS: cloNIDine HCL 0.1 MG TAB PO SCH ×3 (06:00→23:00)
[2017-01-15] MEDS: LEVOTHYROXINE SODIUM 112 MCG TAB PO SCH (06:03)
[2017-01-15] MEDS: DIVALPROEX SODIUM E.R. 250 MG TAB PO SCH ×2 (09:26→20:50)
[2017-01-15] MEDS: SERTRALINE HCL 100 MG TAB PO SCH (09:26)
[2017-01-15] MEDS: HALOPERIDOL 0.5 MG TAB PO SCH ×2 (09:26→20:50)
[2017-01-15] MEDS: levETIRAcetam 500 MG TAB PO SCH ×2 (09:26→20:50)
--- NOTE | 2017-01-15 14:40 | HHI.PYPN ---
Subjective Remarks Patient seen and examined. Chart reviewed. Case discussed with nursing staff. On my examination today, patient is in good spirits. He is calm and pleasant. No SI or HI. Denies side effects from medications. He is pleased to be off of morning dose of Seroquel. No evidence of psychosis. He is agreeable to remaining on the unit over the weekend with plan for discharge Wednesday. Review of Systems ROS Limitations: Poor Historian Other no physical complaints today Objective Alert: Yes [place]: Person, Place Mood: Calm Affect: Euthymic Memory Intact: Comment (Remains fair on clinical exam) Hallucinations: Other (No AVH) Delusions: No Delusion Type: Other (no evident delusional material) Suicidal: Ideation (no suicidal ideation) Homicidal: Ideation (no homicidal ideation) Insight/Judgement Poor Remarks Thought process linear. No signs of any withdrawal noted. Labs Labs reviewed Vitals/IOs Vital Signs Date Time Temp Pulse Resp B/P Pulse Ox O2 Delivery O2 Flow Rate FiO2 01/15/17 05:08 98.7 78 18 115/57 99 Assessment & Plan Problem List: (1) Other schizoaffective disorders ICD Code: F25.8 Assessment & Plan Continue current psychotropics as ordered. Continue other medications and care as ordered. Justification for Cont. Inpt. Monitor over the weekend Discharge Planning Anticipate discharge Wednesday barring some clinical worsening Request HC Surrog/Guard Advoc?: Yes Alex Cross MD Jan 15, 2017 14:40
[2017-01-15 18:49] VITALS: BP 131/68; PULSE 103; RESP 18; TEMP 97.5; O2SAT 100
[2017-01-15] MEDS: QUEtiapine FUMARATE 200 MG TAB PO SCH (20:50)
[2017-01-16 05:55] VITALS: BP 114/72; PULSE 100; RESP 16; TEMP 98.4; O2SAT 99
[2017-01-16] MEDS: LEVOTHYROXINE SODIUM 112 MCG TAB PO SCH (06:03)
[2017-01-16] MEDS: cloNIDine HCL 0.1 MG TAB PO SCH ×3 (06:03→21:31)
[2017-01-16] MEDS: DIVALPROEX SODIUM E.R. 250 MG TAB PO SCH ×2 (09:57→21:31)
[2017-01-16] MEDS: SERTRALINE HCL 100 MG TAB PO SCH (09:57)
[2017-01-16] MEDS: levETIRAcetam 500 MG TAB PO SCH ×2 (09:57→21:31)
[2017-01-16] MEDS: HALOPERIDOL 0.5 MG TAB PO SCH ×2 (09:57→21:31)
--- NOTE | 2017-01-16 15:40 | HHI.PYPN ---
Subjective Remarks Pt seen and discussed with staff. He reports that his mood is improved and he denies SI/HI. He reports that he still has some paranoia but is overall improved. No medication side effects and he reports that symptoms have improved with current medication regimen. Objective Alert: Yes [place]: Person, Place Mood: Calm Affect: Euthymic Memory Intact: Comment (Remains fair on clinical exam) Hallucinations: Other (No AVH) Delusions: Yes Delusion Type: Paranoid (mild) Suicidal: Ideation (no suicidal ideation) Homicidal: Ideation (no homicidal ideation) Insight/Judgement limited Vitals/IOs Vital Signs Date Time Temp Pulse Resp B/P Pulse Ox O2 Delivery O2 Flow Rate FiO2 01/16/17 05:55 98.4 100 16 114/72 99 Intake and Output 01/15/17 01/15/17 01/16/17 08:00 16:00 00:00 Intake Total 480 ml Balance 480 ml Assessment & Plan Problem List: (1) Schizoaffective disorder, bipolar type ICD Code: F25.0 Assessment & Plan Continue current tx plan. Estimated LOS: days Justification for Cont. Inpt. risk of decompensation Request HC Surrog/Guard Advoc?: Yes Suzan Cormier MD Jan 16, 2017 15:40
[2017-01-16 18:49] VITALS: BP 109/66; PULSE 84; RESP 18; TEMP 97.8; O2SAT 98
[2017-01-16] MEDS: QUEtiapine FUMARATE 200 MG TAB PO SCH (21:33)
[2017-01-17 05:31] VITALS: BP 131/69; PULSE 90; RESP 17; TEMP 97.4; O2SAT 96
[2017-01-17] MEDS: cloNIDine HCL 0.1 MG TAB PO SCH ×3 (06:08→22:00)
[2017-01-17] MEDS: LEVOTHYROXINE SODIUM 112 MCG TAB PO SCH (06:08)
[2017-01-17] MEDS: DIVALPROEX SODIUM E.R. 250 MG TAB PO SCH ×2 (08:26→21:22)
[2017-01-17] MEDS: levETIRAcetam 500 MG TAB PO SCH ×2 (08:26→21:22)
[2017-01-17] MEDS: SERTRALINE HCL 100 MG TAB PO SCH (08:26)
[2017-01-17] MEDS: HALOPERIDOL 0.5 MG TAB PO SCH ×2 (08:26→21:23)
--- NOTE | 2017-01-17 16:19 | HHI.PYPN ---
Subjective Remarks Pt seen and discussed with staff. Pt has been calm and cooperative with treatment. No medication side effects. He reports improved mood and denies SI/ HI today. Objective Alert: Yes [place]: Person, Place Mood: Calm Affect: Euthymic Memory Intact: Comment (Remains fair on clinical exam) Hallucinations: Other (No AVH) Delusions: No Delusion Type: Other (none) Suicidal: Ideation (no suicidal ideation) Homicidal: Ideation (no homicidal ideation) Insight/Judgement fair Vitals/IOs Vital Signs Date Time Temp Pulse Resp B/P Pulse Ox O2 Delivery O2 Flow Rate FiO2 01/17/17 05:31 97.4 90 17 131/69 96 Assessment & Plan Problem List: (1) Schizoaffective disorder, bipolar type ICD Code: F25.0 Assessment & Plan Pt improving. Continue current tx plan. Estimated LOS: days Justification for Cont. Inpt. risk of decompensation. Request HC Surrog/Guard Advoc?: Yes Suzan Cormier MD Jan 17, 2017 16:19
[2017-01-17 18:28] VITALS: BP 105/57; PULSE 95; RESP 16; TEMP 98; O2SAT 97
[2017-01-17] MEDS: QUEtiapine FUMARATE 200 MG TAB PO SCH (21:23)
[2017-01-18 05:02] VITALS: BP 126/70; PULSE 85; RESP 18; TEMP 98.2; O2SAT 97
[2017-01-18] MEDS: LEVOTHYROXINE SODIUM 112 MCG TAB PO SCH (06:04)
[2017-01-18] MEDS: cloNIDine HCL 0.1 MG TAB PO SCH ×3 (06:04→20:53)
[2017-01-18] MEDS: DIVALPROEX SODIUM E.R. 250 MG TAB PO SCH ×2 (08:33→20:51)
[2017-01-18] MEDS: SERTRALINE HCL 100 MG TAB PO SCH (08:33)
[2017-01-18] MEDS: HALOPERIDOL 0.5 MG TAB PO SCH ×2 (08:33→20:51)
[2017-01-18] MEDS: levETIRAcetam 500 MG TAB PO SCH ×2 (08:33→20:51)
--- NOTE | 2017-01-18 14:51 | HHI.PYPN ---
Subjective Remarks Patient seen and examined. Chart reviewed. Case discussed with nursing staff who reports patient has been calm and cooperative. Case discussed with nursing staff who reports patient banged his head on the table during group today. Unclear what the trigger was as there was nothing particularly controversial or upsetting and the content of the group that the counselor could tell. On my examination today, the patient denies any suicidal or homicidal ideation. He admits to self injuring and maintains that there was something in the content of the group that set him off, but he cannot or perhaps will not describe this in any detail. He denies any audiovisual hallucinations. Denies any ongoing urge to self injure. Denies side effects from medications. Review of Systems ROS Limitations: Poor Historian Other No physical complaints today Objective Alert: Yes [place] [employer]: Person, Place Mood: Calm Affect: Flat Memory Intact: Comment (Remains fair on clinical exam) Hallucinations: Other (denies audiovisual hallucinations) Delusions: No Delusion Type: Other (no staci delusional material) Suicidal: Ideation (denies suicidal ideation) Homicidal: Ideation (denies homicidal ideation) Insight/Judgement Poor Remarks No abnormal motor movements noted. Thought processes linear. Patient does have a small abrasion on his forehead. Labs Test 01/18/17 06:54 Ammonia 38 MCMOL/L Valproic Acid (Depakene) Level 68 MCG/ML Labs reviewed. No signs of valproate induced hyperammonemic encephalopathy. Vitals/IOs Vital Signs Date Time Temp Pulse Resp B/P Pulse Ox O2 Delivery O2 Flow Rate FiO2 01/18/17 05:02 98.2 85 18 126/70 97 Assessment & Plan Problem List: (1) Schizoaffective disorder, bipolar type ICD Code: F25.0 Assessment & Plan For patient's head banging, check an urgent head CT (Update: read as normal). This is the first self-injurious behavior that we have seen on the unit, and it is unclear what motivated it. Patient is denying any suicidal or homicidal ideation at this time. He is denying any audiovisual hallucinations and there is no evidence of psychosis. Consequently, it is unclear if a medication adjustment would reduce the risk of this type of self injury recurring. I will continue current psychotropics as ordered and monitor on the inpatient unit. Continue other medications and care as ordered. Justification for Cont. Inpt. Monitoring for impairments in safety. Discharge Planning Pending outcome of observation. Request HC Surrog/Guard Advoc?: Yes Alex Cross MD Jan 18, 2017 14:51
--- NOTE | 2017-01-18 15:36 | RADRPT ---
EXAM DATE/TIME: 01/18/2017 15:18 [facility] COMPARISON: No previous studies available for comparison. INDICATIONS : Possible trauma to head. RADIATION DOSE: 56.35 CTDIvol (mGy) MEDICAL HISTORY : Hernia, hiatal. SURGICAL HISTORY : Appendectomy. ENCOUNTER: Initial ACUITY: 1 day PAIN SCALE: 0/10 LOCATION: Bilateral head TECHNIQUE: Multiple contiguous axial images were obtained of the head. Using automated exposure control and adj ustment of the mA and/or kV according to patient size, radiation dose was kept as low as reasonably a chievable to obtain optimal diagnostic quality images. FINDINGS: CEREBRUM: The ventricles are normal for age. No evidence of midline shift, mass lesion, hemorrhage or acute in farction. No extra-axial fluid collections are seen. POSTERIOR FOSSA: The cerebellum and brainstem are intact. The 4th ventricle is midline. The cerebellopontine angle i s unremarkable. EXTRACRANIAL: The visualized portion of the orbits is intact. SKULL: The calvaria is intact. No evidence of skull fracture. CONCLUSION: Normal examination. Stas Lozada MD on January 18, 2017 at 15:34 Board Certified Radiologist. This report was verified electronically.
[2017-01-18 17:23] VITALS: BP 137/77; PULSE 114; RESP 18; TEMP 97.5; O2SAT 98
[2017-01-18] MEDS ORDERED: PERC10TA27 PO (17:28)
[2017-01-18] MEDS: levOCARNitine 10% ORAL SOLN 118 ML BTL PO SCH (18:00)
[2017-01-18] MEDS: QUEtiapine FUMARATE 200 MG TAB PO SCH (20:52)
[2017-01-18] MEDS: LORazepam 1 MG TAB PO PRN (20:53)
[2017-01-19 05:32] VITALS: BP 108/68; PULSE 87; RESP 18; TEMP 97.5; O2SAT 99
[2017-01-19] MEDS: cloNIDine HCL 0.1 MG TAB PO SCH ×3 (05:59→21:33)
[2017-01-19] MEDS: LEVOTHYROXINE SODIUM 112 MCG TAB PO SCH (05:59)
[2017-01-19] MEDS: levOCARNitine 10% ORAL SOLN 118 ML BTL PO SCH ×3 (08:41→17:46)
[2017-01-19] MEDS: levETIRAcetam 500 MG TAB PO SCH ×2 (08:41→21:04)
[2017-01-19] MEDS: DIVALPROEX SODIUM E.R. 250 MG TAB PO SCH ×2 (08:41→21:04)
[2017-01-19] MEDS: HALOPERIDOL 0.5 MG TAB PO SCH ×2 (08:41→21:04)
[2017-01-19] MEDS: SERTRALINE HCL 100 MG TAB PO SCH (08:42)
--- NOTE | 2017-01-19 14:39 | HHI.PYPN ---
Subjective Remarks Patient seen and examined with counselor. Chart reviewed. Case discussed with nursing counselor in treatment team. Per nursing staff, no further behavioral disturbance since episode of head banging yesterday. On my examination today, patient is calm and pleasant. He denies any urge to self injure. He denies any SI or HI. He says that he engaged in the head-banging behavior because another patient was making fun of him for biting his nails. He is in good spirits today. He is hopeful for discharge soon. Denies side effects from medications. Review of Systems ROS Limitations: Poor Historian Other No physical complaints today Objective Alert: Yes [place]: Person, Place Mood: Calm Affect: Euthymic Memory Intact: Comment (fair) Hallucinations: Other (no audiovisual hallucinations) Delusions: No Delusion Type: Other (no delusions) Suicidal: Ideation (denies suicidal ideation) Homicidal: Ideation (denies homicidal ideation) Insight/Judgement Poor Remarks No abnormal motor movements noted. Thought process linear. Labs Labs reviewed. No new labs. Vitals/IOs Vital Signs Date Time Temp Pulse Resp B/P Pulse Ox O2 Delivery O2 Flow Rate FiO2 01/19/17 05:32 97.5 87 18 108/68 99 Assessment & Plan Problem List: (1) Schizoaffective disorder, bipolar type ICD Code: F25.0 Assessment & Plan Continue current psychiatric medications as ordered. Reinforce adaptive coping skills given that self injury was apparently driven by feeling like he was being made fun of. Continue other medications and care as ordered. Justification for Cont. Inpt. Monitoring for impairments in safety. Discharge Planning Monitor overnight. If no behavioral disturbance, anticipate discharge tomorrow. Request HC Surrog/Guard Advoc?: Yes Alex Cross MD Jan 19, 2017 14:39
[2017-01-19 20:45] VITALS: BP_SYST 128; BP_DIAS 6; BP_DIAS 66; PULSE 109; RESP 18; TEMP 97.5; O2SAT 97
[2017-01-19] MEDS: QUEtiapine FUMARATE 200 MG TAB PO SCH (21:04)
[2017-01-20 05:07] VITALS: BP 128/61; PULSE 99; RESP 17; TEMP 97.7; O2SAT 99
[2017-01-20] MEDS: cloNIDine HCL 0.1 MG TAB PO SCH ×3 (05:56→22:38)
[2017-01-20] MEDS: LEVOTHYROXINE SODIUM 112 MCG TAB PO SCH (05:56)
[2017-01-20] MEDS: DIVALPROEX SODIUM E.R. 250 MG TAB PO SCH ×2 (08:31→21:09)
[2017-01-20] MEDS: HALOPERIDOL 0.5 MG TAB PO SCH ×2 (08:31→21:09)
[2017-01-20] MEDS: levETIRAcetam 500 MG TAB PO SCH ×2 (08:31→21:09)
[2017-01-20] MEDS: levOCARNitine 10% ORAL SOLN 118 ML BTL PO SCH ×3 (08:31→18:00)
[2017-01-20] MEDS: SERTRALINE HCL 100 MG TAB PO SCH (08:32)
--- NOTE | 2017-01-20 13:39 | HHI.PYPN ---
Subjective Remarks Patient seen and examined. Chart reviewed. Case discussed with nursing staff. On my examination today, the patient is in good spirits. He denies any suicidal or homicidal ideation. He denies any urge to self injure. He seems quite comfortable on the unit and asks us to "given a little more time and see. I'm enjoying it here. The food is good." He says he likes the people he is meeting here. No psychotic symptoms. Denies side effects from medications. Review of Systems ROS Limitations: Poor Historian Other No physical complaints today Objective Alert: Yes [place]: Person, Place Mood: Calm Affect: Euthymic Memory Intact: Comment (fair) Hallucinations: Other (no audiovisual hallucinations) Delusions: No Delusion Type: Other (no delusional material) Suicidal: Ideation (denies any suicidal ideation) Homicidal: Ideation (denies any homicidal ideation) Insight/Judgement Poor Remarks Thought process linear. No abnormal motor movements noted. Labs Labs reviewed. No new labs. Vitals/IOs Vital Signs Date Time Temp Pulse Resp B/P Pulse Ox O2 Delivery O2 Flow Rate FiO2 01/20/17 05:07 97.7 99 17 128/61 99 Assessment & Plan Problem List: (1) Schizoaffective disorder, bipolar type ICD Code: F25.0 Assessment & Plan Continue current psychotropics as ordered. Follow-up ammonia level tomorrow. Continue other care as ordered. Justification for Cont. Inpt. Monitoring for impairments in safety. Discharge Planning Case discussed with counselor. We will plan for discharge tomorrow, barring some clinical worsening. Request HC Surrog/Guard Advoc?: Yes Alex Cross MD Jan 20, 2017 13:39
[2017-01-20 18:32] VITALS: BP 132/67; PULSE 95; RESP 18; TEMP 98.3; O2SAT 100
[2017-01-20] MEDS: QUEtiapine FUMARATE 200 MG TAB PO SCH (21:09)
[2017-01-21] MEDS: LEVOTHYROXINE SODIUM 112 MCG TAB PO SCH (06:09)
[2017-01-21] MEDS: cloNIDine HCL 0.1 MG TAB PO SCH ×2 (06:09→13:05)
[2017-01-21 06:14] VITALS: BP 117/63; PULSE 99; RESP 18; TEMP 97.7
[2017-01-21] MEDS: levETIRAcetam 500 MG TAB PO SCH (09:13)
[2017-01-21] MEDS: HALOPERIDOL 0.5 MG TAB PO SCH (09:13)
[2017-01-21] MEDS: SERTRALINE HCL 100 MG TAB PO SCH (09:13)
[2017-01-21] MEDS: DIVALPROEX SODIUM E.R. 250 MG TAB PO SCH (09:14)
[2017-01-21] MEDS: levOCARNitine 10% ORAL SOLN 118 ML BTL PO SCH ×2 (09:15→14:02)
[2017-01-21 12:33] VITALS: BP 111/85; PULSE 91
[2017-01-21] MEDS ORDERED: LEVO10%S PO (14:52)
[2017-01-21] MEDS ORDERED: QUET1TAB9 PO (14:52)
[2017-01-21] MEDS ORDERED: DEPA500T3 PO (14:52)
--- NOTE | 2017-01-21 14:52 | HHI.DS ---
Psychiatry Discharge Summary Inpatient Psychiatric care?: Yes Advance Directive: No Reason Not Provided: REPORTS DOES NOT HAVE Mental Health AdvanceDirective: No Health Care Proxy: No Admission Admission Date Jan 09, 2017 at 08:33 Admission Diagnosis: (1) Other schizoaffective disorders ICD Code: F25.8 Brief History Mr. Chawla is a 36-year-old albino male with a reported history of bipolar disorder who presents under a Welsh act from [employer] alleging that the patient said that he wanted to harm himself. Patient's emergency services director told the officer that he had laid in the middle of the road to try to kill himself. Reviewing the electronic medical record, I note the patient was seen most recently by nurse practitioner Mariano in September of last year. Patient seen and examined. Chart reviewed. Case discussed with nursing staff. On my examination today, the patient presents as somewhat lower functioning and perhaps has borderline intellectual functioning. He says that he was feeling suicidal because "the person that I live with was harassing me, treating me like a kid. They don't let me take my own medications. They do let me eat what I want. They don't let me buy toiletries like I want." He denies any homicidal ideation. His mood is described as "okay" but his sleep is reportedly poor. Affect is fairly childlike. He denies audiovisual hallucinations but appears frankly internally preoccupied and casts his eyes about the room appearing to look at invisible objects. He endorses feelings of thought manipulation but denies any paranoia or ideas of reference. No other depressive or hypomanic or manic symptoms noted. Remainder of the psychiatric ROS is negative. Past psychiatric history: Patient reports prior diagnosis of bipolar disorder. He is not sure who he follows for psychiatric care. He reports his most recent psychiatric admission was in [place]. He reports prior suicide attempts by running into the street and also trying to cut himself. Family history: Patient endorses a family history of depression and also notes that his sister tried to kill herself. Chemical dependency history: Patient denies a history of abuse of drugs or alcohol. Social history: Patient reports that he lives at home with a emergency services director. He is single with no children. He says that he has a college education but can't remember what degree he was working towards. He is presently on disability. He endorses a history of simple battery charges. No reported access to guns or firearms. Nursing staff has reached out to patient's caregiver Maricruz Nava, and apparently patient's behavior has been fairly disturbed at home. Ms. Nava is willing to have him back in the home once psychiatrically stabilized but does not feel that he is safe to return there now. Tobacco Use In Past 30 Days: No Tobacco Past 30 Days Alcohol Use: Never Hospital Course Patient was admitted to a locked, inpatient psychiatric unit. A general medical consultation was obtained. Appropriate precautions were in place throughout patient's hospital stay. Patient was seen and examined daily on the unit by psychiatry and also visited by counselor. Medications were adjusted. Patient tolerated medications well without side effects. He was no evidence of suicidality or homicidality on the inpatient unit. Patient did have 1 episode of circumscribed head banging in response to a clear stimulus, namely someone allegedly chiding him for biting his nails. Otherwise, the patient was in good behavioral control and was quite sociable and gregarious on the unit. Patient was compliant with medications, although he did not want to take Seroquel in the morning and so the dosing of this medication was adjusted. On the day of discharge: Patient seen and examined. Chart reviewed. Case discussed with counselor at nurse. No behavioral problems reported. On my examination today, patient is in good spirits. He says "I'm so happy here." He denies any suicidal or homicidal ideation on direct questioning. He denies any urge to self injure. He denies any audiovisual hallucinations. No evident delusional material. No issues with mood. He denies side effects from medications. He has no somatic complaints. Weighing the acute, chronic, and protective factors and based on the available evidence, I magistrate judge to a reasonable degree of medical certainty that the patient is at low imminent risk of harm to self or others from a mental illness and his level of function is adequate for outpatient care. I do suspect there is a component of chronic risk related to some degree of impulse control issues associated with what I suspect is borderline intellectual functioning, but this risk would not be ameliorated by a longer inpatient psychiatric hospital stay. I will discharge the patient today in stable condition with psychiatric follow-up as arranged by counselor. Patient is also to follow-up with primary care. Patient to return to psychiatric emergency room for any concerning psychiatric symptoms. Results Blood Pressure 111 / 85 Vital Signs Date Time Temp Pulse Resp B/P Pulse Ox O2 Delivery O2 Flow Rate FiO2 01/21/17 12:33 91 111/85 01/21/17 06:14 97.7 18 01/20/17 18:32 100 Laboratory Results Test 01/18/17 06:54 Valproic Acid (Depakene) Level 68 MCG/ML (50-100) Summary of Procedures None done Imaging Last Impressions Head CT 01/18/17 0000 Signed Impressions: Service Date/Time: Wednesday, January 18, 2017 15:18 - CONCLUSION: Normal examination. Stas Lozada MD Pending results at discharge: No Medications # of Antipsychotic meds at D/C: 2 Appropriate >1 Antipsych meds?: 4 Approp Antipsych med options 1 - Minimum of three failed multiple trials of monotherapy. 2 - Documented plan to taper to monotherapy due to previous use of multiple meds OR cross-taper in progress at D/C. 3 - Documentation of augmentation of Clozapine. 4 - Justification other than those listed in allowable values 1-3, document here : Prior to admission meds. Discharge Discharge Date: Jan 21, 2017 Discharge Diagnosis: (1) Schizoaffective disorder, bipolar type Diagnosis: Principal (stable. 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 He is well groomed. He is awake and alert and oriented to person and hospital at least. No abnormal motor movements noted. Speech is within normal limits for rate, tone and volume. Language and fund of knowledge seem mildly reduced. Mood is good and affect is euthymic, full and reactive is somewhat childlike. Thought process linear. No loosening of associations. No evident delusions. Denies audiovisual hallucinations. Denies suicidal or homicidal ideation. Denies any urge to self injure. Insight and judgment are poor, likely chronically so. Pt Condition on Discharge: Stable Discharge Disposition: Discharge Home Discharge Instructions Diet Instructions: As Tolerated, No Restrictions Activities you can perform: Weight Bearing as Ary Scheduled Appointment: Edgar Xavier Appointment Date: Jan 26, 2017 Appointment Time: 7:30am New Medications: Divalproex ER (Depakote ER) 500 Mg Criss 500 MG PO BID Mental Health Days 15 Ref 1 TAB Levocarnitine Liq (Carnitor Liq) 1 Gm/10 Ml Soln 3 ML PO TID Hyperammonemia Days 15 Ref 1 ML Quetiapine (Quetiapine) 200 Mg Tab 600 MG PO HS Mental Health Days 15 Ref 1 TAB Continued Medications: Haloperidol (Haloperidol) 0.5 Mg Tab 0.5 MG PO BID Ref 0 TAB Levetiracetam (Keppra) 500 Mg Tab 500 MG PO BID Control Seizures #60 Ref 0 TAB Levothyroxine (Levothyroxine) 125 Mcg Tab 125 MCG PO DAILY Thyroid #30 Ref 0 TAB Sertraline (Zoloft) 100 Mg Tab 100 MG PO DAILY #30 Ref 0 TAB Discontinued Medications: Divalproex ER (Depakote ER) 250 Mg Criss 250 MG PO DAILY #30 Divalproex ER (Depakote ER) 500 Mg Criss 500 MG PO HS Control Seizures #30 Ref 0 TAB Quetiapine (Seroquel) 300 Mg Tab 300 MG PO DAILY #30 Ref 0 TAB Quetiapine (Quetiapine) 400 Mg Tab 400 MG PO BID #60 Ref 0 TAB Discharge Time <= 30 minutes Discharge/Advance Care Plan Health Problems: (1) Schizoaffective disorder, bipolar type Goals to promote your health * To prevent worsening of your condition and complications * To maintain your health at the optimal level Directions to meet your goals Take your medications as prescribed Follow your dietary instruction Follow activity as directed Keep your appointments as scheduled Take your immunizations and boosters as scheduled If your symptoms worsen call your PCP, if no PCP go to Urgent Care Center or Emergency Room For 24/ questions related to your inpatient stay or results of tests pending at discharge, please contact Dr. Alex Cross at Smoking is Dangerous to Your Health. Avoid second hand smoking Alex Cross MD Jan 21, 2017 14:52
== END 2017-01-21 15:45 | disposition home or self-care (01) | DRG 885 ==
LOC: NEPJ 17:14 → NEDA 01-09 08:33 → H270 01-09 11:15 → H260 01-13 11:47
PROVIDERS: ADMIT Psychiatry & Neurology Psychiatry; ATTEND Psychiatry & Neurology Psychiatry
DX: F25.0 Schizoaffective disorder, bipolar type (principal); E70.30 Albinism, unspecified; Z91.5 Personal history of self-harm; Z81.8 Family history of other mental and behavioral disorders
CPT/HCPCS: 70450; 80048; 80053; 80061; 80164; 80307; 80320; 82140; 83036; 84439; 84443; 85025; 99284; Q0163

== ENCOUNTER 2017-08-13 23:45 | Emergency (ER) | payer MEDICARE, OTHER ==
[~2017-08-13] VITALS: Ht 172.7 cm; Wt 77.3 kg
[~2017-08-13 23:45] MED LIST changes: +DEPA500T3 PO; -DIVA250ER PO; +HALO0.5T PO; +LEVE500 PO; +LEVO10%S PO; +QUET1TAB9 PO; -SERO300T PO
[2017-08-13 23:59] VITALS: BP 118/67; PULSE 97; RESP 16; TEMP 97.5; O2SAT 95
[2017-08-14 00:28] LABS: AUTOMATED NEUTROPHIL # 3.1 TH/MM3 (1.8-7.7); BASOPHIL # 0.1 TH/MM3 (0-0.2); BASOPHIL % 1.1 % (0.0-2.0); EOSINOPHIL # 0.2 TH/MM3 (0-0.4); HEMATOCRIT 39.4 % (39.0-51.0); HEMO FLAGS DIFF FINAL; LYMPH % 42.7 % (9.0-44.0); LYMPHOCYTE # 2.9 TH/MM3 (1.0-4.8); MEAN CELL VOLUME 87.9 FL (80.0-100.0); MEAN CORPUSCULAR HGB CONC 34.1 % (32.0-36.0); NEUT % 46.2 % (16.0-70.0); PLATELET COUNT 241 TH/MM3 (150-450); RED BLOOD COUNT 4.49 MIL/MM3 (4.50-5.90); RED CELL DISTRIBUTION WIDTH 13.3 % (11.6-17.2); WHITE BLOOD COUNT 6.8 TH/MM3 (4.0-11.0)
[2017-08-14 00:43] LABS: ALT (GPT) 23 U/L (12-78); ANION GAP 7 MEQ/L (5-15); AST (GOT) 14 U/L (15-37); BICARBONATE 27.8 MEQ/L (21.0-32.0); BLOOD UREA NITROGEN 25 MG/DL (7-18); CHLORIDE 106 MEQ/L (98-107); GLOMERULAR FILTRATION RATE 64 ML/MIN (>89); POTASSIUM 3.7 MEQ/L (3.5-5.1); SODIUM (NA) 141 MEQ/L (136-145)
[2017-08-14 00:44] LABS: ALCOHOL LESS THAN 3 MG/DL (0-5)
[2017-08-14 00:46] LABS: ALKALINE PHOSPHATASE 58 U/L (45-117); TOTAL BILIRUBIN ADULT 0.3 MG/DL (0.2-1.0)
--- NOTE | 2017-08-14 00:58 | PD ---
HPI Chief Complaint: Psychiatric Symptoms Time Seen by Provider: 00:02 Travel History International Travel<30 days: No Contact w/Intl Traveler<30days: No Traveled to known affect area: No History of Present Illness HPI Patient is a 37 year old male with history of schizophrenia/bipolar disorder, brought in by police under a cordero act. He says he is having bad thoughts and wants to hurt someone. He denies hearing voices. He reports compliance with his medications. He denies suicidal thoughts. He has no medical complaints. PFSH Past Medical History Bipolar Disorder: Yes Anxiety: No Depression: Yes Cancer: No Cardiovascular Problems: No Diminished Hearing: No Endocrine: No Genitourinary: No Hiatal Hernia: Yes Immune Disorder: No Musculoskeletal: No Neurologic: No Psychiatric: Yes Reproductive: No Respiratory: No Immunizations Current: Yes Seizures: Yes Thyroid Disease: Yes (HYPO) Past Surgical History Appendectomy: Yes Social History Alcohol Use: No Tobacco Use: No Substance Use: No Allergies-Medications (Allergen,Severity, Reaction): Coded Allergies: No Known Allergies (Verified , 08/14/17) Reported Meds & Prescriptions Reported Meds & Active Scripts Active Quetiapine (Quetiapine Fumarate) 200 Mg Tab 600 Mg PO HS 15 Days Carnitor Liq (Levocarnitine) 1 Gm/10 Ml Soln 3 Ml PO TID 15 Days Depakote ER (Divalproex Sodium) 500 Mg Criss 500 Mg PO BID 15 Days Reported Haloperidol 0.5 Mg Tab 0.5 Mg PO BID Keppra (Levetiracetam) 500 Mg Tab 500 Mg PO BID Levothyroxine (Levothyroxine Sodium) 125 Mcg Tab 125 Mcg PO DAILY Zoloft (Sertraline HCl) 100 Mg Tab 100 Mg PO DAILY Review of Systems Except as stated in HPI: all other systems reviewed are Neg General / Constitutional: No: Fever, Chills Eyes: No: Blurred Vision HENT: No: Headaches Cardiovascular: No: Chest Pain or Discomfort Respiratory: No: Cough, Shortness of Breath Gastrointestinal: No: Nausea, Vomiting, Abdominal Pain Musculoskeletal: No: Myalgias, Edema Skin: No Rash, No Change in Pigmentation Neurologic: No: Weakness, Dizziness Psychiatric: Positive: Homicidal Ideation Physical Exam Narrative GENERAL: Awake and alert, in no acute distress. SKIN: Focused skin assessment warm/dry. HEAD: Atraumatic. Normocephalic. EYES: Pupils equal and round. No scleral icterus. No injection or drainage. ENT: No nasal bleeding or discharge. Mucous membranes pink and moist. NECK: Trachea midline. No JVD. CARDIOVASCULAR: Regular rate and rhythm. No murmur appreciated. RESPIRATORY: No accessory muscle use. Clear to auscultation. Breath sounds equal bilaterally. GASTROINTESTINAL: Abdomen soft, non-tender, nondistended. MUSCULOSKELETAL: No obvious deformities. No clubbing. No cyanosis. No edema. NEUROLOGICAL: Awake and alert. No obvious cranial nerve deficits. Motor grossly within normal limits. Normal speech. PSYCHIATRIC: Appropriate mood and affect; insight and judgment normal. Data Data Last Documented VS Vital Signs Date Time Temp Pulse Resp B/P (MAP) Pulse Ox O2 Delivery O2 Flow Rate FiO2 08/13/17 23:59 97.5 97 16 118/67 (84) 95 Orders Orders Complete Blood Count With Diff (08/14/17 00:02) Comprehensive Metabolic Panel (08/14/17 00:02) Psych Screen (08/14/17 00:02) Drug Screen, Random Urine (08/14/17 00:02) Alcohol (Ethanol) (08/14/17 00:02) Labs Laboratory Tests Test 08/14/17 00:00 White Blood Count 6.8 TH/MM3 Red Blood Count 4.49 MIL/MM3 Hemoglobin 13.5 GM/DL Hematocrit 39.4 % Mean Corpuscular Volume 87.9 FL Mean Corpuscular Hemoglobin 30.0 PG Mean Corpuscular Hemoglobin Concent 34.1 % Red Cell Distribution Width 13.3 % Platelet Count 241 TH/MM3 Mean Platelet Volume 8.4 FL Neutrophils (%) (Auto) 46.2 % Lymphocytes (%) (Auto) 42.7 % Monocytes (%) (Auto) 7.0 % Eosinophils (%) (Auto) 3.0 % Basophils (%) (Auto) 1.1 % Neutrophils # (Auto) 3.1 TH/MM3 Lymphocytes # (Auto) 2.9 TH/MM3 Monocytes # (Auto) 0.5 TH/MM3 Eosinophils # (Auto) 0.2 TH/MM3 Basophils # (Auto) 0.1 TH/MM3 CBC Comment DIFF FINAL Differential Comment Blood Urea Nitrogen 25 MG/DL Creatinine 1.27 MG/DL Random Glucose 116 MG/DL Total Protein 7.5 GM/DL Albumin 3.6 GM/DL Calcium Level 8.4 MG/DL Alkaline Phosphatase 58 U/L Aspartate Amino Transf (AST/SGOT) 14 U/L Alanine Aminotransferase (ALT/SGPT) 23 U/L Total Bilirubin 0.3 MG/DL Sodium Level 141 MEQ/L Potassium Level 3.7 MEQ/L Chloride Level 106 MEQ/L Carbon Dioxide Level 27.8 MEQ/L Anion Gap 7 MEQ/L Estimat Glomerular Filtration Rate 64 ML/MIN Ethyl Alcohol Level LESS THAN 3 MG/DL MDM Medical Decision Making Medical Screen Exam Complete: Yes Emergency Medical Condition: Yes Medical Record Reviewed: Yes Differential Diagnosis psychosis vs intoxication vs mood disorder Narrative Course Patient is a 37 year old male who comes in with homicidal ideation. He has no medical complaints. Exam shows no abnormalities. He has no medical complaints. Labs show no acute abnormalities. Patient will be medically cleared for psychiatric evaluation. Diagnosis Primary Impression: Medical clearance for psychiatric admission Condition: Stable Jenise Mars MD Aug 14, 2017 00:58
[2017-08-14 07:50] VITALS: BP 114/64; PULSE 88; RESP 13; TEMP 97.3; O2SAT 99
--- NOTE | 2017-08-14 12:08 | PD ---
Physical Exam Date Seen by Provider: Aug 14, 2017 Time Seen by Provider: 12:07 Narrative This is a 37-year-old male who was brought in under a Welsh act. The patient was having thoughts of hurting an individual. He reports taking his medication as prescribed. The patient was medically cleared by Dr. Mars, previous physician in the [facility] pod. Data Data Last Documented VS Vital Signs Date Time Temp Pulse Resp B/P (MAP) Pulse Ox O2 Delivery O2 Flow Rate FiO2 08/14/17 07:50 97.3 88 13 114/64 (81) 99 Room Air Orders Orders Complete Blood Count With Diff (08/14/17 00:02) Comprehensive Metabolic Panel (08/14/17 00:02) Psych Screen (08/14/17 00:02) Drug Screen, Random Urine (08/14/17 00:02) Alcohol (Ethanol) (08/14/17 00:02) Diet Regular Basic (08/14/17 Breakfast) Labs Laboratory Tests Test 08/14/17 00:00 08/14/17 09:28 White Blood Count 6.8 TH/MM3 Red Blood Count 4.49 MIL/MM3 Hemoglobin 13.5 GM/DL Hematocrit 39.4 % Mean Corpuscular Volume 87.9 FL Mean Corpuscular Hemoglobin 30.0 PG Mean Corpuscular Hemoglobin Concent 34.1 % Red Cell Distribution Width 13.3 % Platelet Count 241 TH/MM3 Mean Platelet Volume 8.4 FL Neutrophils (%) (Auto) 46.2 % Lymphocytes (%) (Auto) 42.7 % Monocytes (%) (Auto) 7.0 % Eosinophils (%) (Auto) 3.0 % Basophils (%) (Auto) 1.1 % Neutrophils # (Auto) 3.1 TH/MM3 Lymphocytes # (Auto) 2.9 TH/MM3 Monocytes # (Auto) 0.5 TH/MM3 Eosinophils # (Auto) 0.2 TH/MM3 Basophils # (Auto) 0.1 TH/MM3 CBC Comment DIFF FINAL Differential Comment Blood Urea Nitrogen 25 MG/DL Creatinine 1.27 MG/DL Random Glucose 116 MG/DL Total Protein 7.5 GM/DL Albumin 3.6 GM/DL Calcium Level 8.4 MG/DL Alkaline Phosphatase 58 U/L Aspartate Amino Transf (AST/SGOT) 14 U/L Alanine Aminotransferase (ALT/SGPT) 23 U/L Total Bilirubin 0.3 MG/DL Sodium Level 141 MEQ/L Potassium Level 3.7 MEQ/L Chloride Level 106 MEQ/L Carbon Dioxide Level 27.8 MEQ/L Anion Gap 7 MEQ/L Estimat Glomerular Filtration Rate 64 ML/MIN Ethyl Alcohol Level LESS THAN 3 MG/DL Urine Opiates Screen NEG Urine Barbiturates Screen NEG Urine Amphetamines Screen NEG Urine Benzodiazepines Screen POS Urine Cocaine Screen NEG Urine Cannabinoids Screen NEG MDM Medical Record Reviewed: Yes Supervised Visit with ANDREW: No Narrative Course 37-year-old male brought under Welsh act after he reportedly wanted to hurt an individual. The patient was seen and evaluated by the psychiatrist who has lifted the Welsh act. The patient will be discharged home. He'll be instructed to follow up with his psychiatrist. Diagnosis Primary Impression: Adjustment disorder with disturbance of conduct Additional Impression: Medical clearance for psychiatric admission Additional Instruction: Take medications as prescribed return as needed. Disposition: 01 DISCHARGE HOME Condition: Stable Stanton Lacey MD Aug 14, 2017 12:08
--- NOTE | 2017-08-14 13:19 | PD.PSY.CON ---
Provisional Diagnosis Admission Date Manton I. Adjustment disorder with disturbance of conduct, history of schizoaffective disorder M[place] II. Mild intellectual disability M[place] III. Hypothyroidism, hypertension History of Present Illness Service Psychiatry Consult Requested By Reason for Consult Suicidal ideation Primary Care Physician No Primary Care Physician HPI The patient is a 37-year-old man, domiciled in a residential facility, his single, unemployed, with psychiatric history of schizoaffective disorder, he was hospitalized here in [place] under the care of Dr. Cross in December 2016, documentation reviewed, patient also has history of intellectual disability, he has established outpatient care in [facility], he is on Depakote 500 because twice a day, Haldol 0.5 mg twice a day, Seroquel 600 mg, Zoloft 100 mg, medical history of seizures, hypothyroidism, hypertension, he is on Keppra 500 mg twice a day, who was brought to the ER under Welsh act because patient expressed suicidal ideation. On psychiatric evaluation today patient is calm, cooperative and pleasant. Patient says that he is happy to be here, he says that yesterday he was very upset because he has been asking for individual apartment, he doesn't want to live with anybody else. He said that some day people aren't meet with him. Patient is very childish and is states that he love to watch TV and to talk with people. At this moment patient denies depression, he denies anxiety, he denies perceptual disturbances, he denies suicidal and homicidal ideation, he denies visual and auditory hallucinations. Patient wished to go back to his house. Patient denies the use of alcohol and illicit drugs. Review of Systems Constitutional: DENIES: Diaphoretic episodes, Fatigue, Fever, Weight gain, Weight loss, Chills, Dizziness, Change in appetite, Night Sweats Eyes: DENIES: Blurred vision, Diplopia, Eye inflammation, Eye pain, Vision loss , Photosensitivity, Double Vision Ears, nose, mouth, throat: DENIES: Tinnitus, Hearing loss, Vertigo, Nasal discharge, Oral lesions, Throat pain, Hoarseness, Ear Pain, Running Nose, Epistaxis, Sinus Pain, Toothache, Odynophagia Respiratory: DENIES: Apneas, Cough, Snoring, Wheezing, Hemoptysis, Sputum production, Shortness of breath Cardiovascular: DENIES: Chest pain, Palpitations, Syncope, Dyspnea on Exertion , PND, Lower Extremity Edema, Orthopnea, Claudication Gastrointestinal: DENIES: Abdominal pain, Black stools, Bloody stools, Constipation, Diarrhea, Nausea, Vomiting, Difficulty Swallowing, Anorexia Musculoskeletal: DENIES: Joint pain, Muscle aches, Stiffness, Joint Swelling, Back pain, Neck pain Integumentary: DENIES: Abnormal pigmentation, Nail changes, Pruritus, Rash Hematologic/lymphatic: DENIES: Bruising, Lymphadenopathy Immunologic/allergic: DENIES: Eczema, Urticaria Neurologic: DENIES: Abnormal gait, Headache, Localized weakness, Paresthesias, Seizures, Speech Problems, Tremor, Poor Balance Past Family Social History Coded Allergies: No Known Allergies (Verified , 08/14/17) Active Scripts Quetiapine (Quetiapine) 200 Mg Tab, 600 MG PO HS for Mental Health for 15 Days, TAB 1 Refill Prov:Alex Cross MD 01/21/17 Levocarnitine Liq (Carnitor Liq) 1 Gm/10 Ml Soln, 3 ML PO TID for Hyperammonemia for 15 Days, ML 1 Refill Prov:Alex Cross MD 01/21/17 Divalproex ER (Depakote ER) 500 Mg Criss, 500 MG PO BID for Mental Health for 15 Days, TAB 1 Refill Prov:Alex Cross MD 01/21/17 Reported Medications Haloperidol (Haloperidol) 0.5 Mg Tab, 0.5 MG PO BID, TAB 0 Refills 01/11/17 Levetiracetam (Keppra) 500 Mg Tab, 500 MG PO BID for Control Seizures, #60 TAB 0 Refills 01/11/17 Levothyroxine (Levothyroxine) 125 Mcg Tab, 125 MCG PO DAILY for Thyroid, #30 TAB 0 Refills 10/05/16 Sertraline (Zoloft) 100 Mg Tab, 100 MG PO DAILY, #30 TAB 0 Refills 10/05/16 Family History No family psychiatric history Social History Patient was born and raised in [place], he lives in a residential facility, his single, unemployed, Patient's Strengths (min. 2) Verbal communication Physical Exam Vital Signs Vital Signs Date Time Temp Pulse Resp B/P (MAP) Pulse Ox O2 Delivery O2 Flow Rate FiO2 08/14/17 07:50 97.3 88 13 114/64 (81) 99 Room Air I/O 08/14/17 08/14/17 08/15/17 08:00 16:00 00:00 Intake Total 480 ml Balance 480 ml Lab Results Test 08/14/17 00:00 08/14/17 09:28 White Blood Count 6.8 TH/MM3 Red Blood Count 4.49 MIL/MM3 Hemoglobin 13.5 GM/DL Hematocrit 39.4 % Mean Corpuscular Volume 87.9 FL Mean Corpuscular Hemoglobin 30.0 PG Mean Corpuscular Hemoglobin Concent 34.1 % Red Cell Distribution Width 13.3 % Platelet Count 241 TH/MM3 Mean Platelet Volume 8.4 FL Neutrophils (%) (Auto) 46.2 % Lymphocytes (%) (Auto) 42.7 % Monocytes (%) (Auto) 7.0 % Eosinophils (%) (Auto) 3.0 % Basophils (%) (Auto) 1.1 % Neutrophils # (Auto) 3.1 TH/MM3 Lymphocytes # (Auto) 2.9 TH/MM3 Monocytes # (Auto) 0.5 TH/MM3 Eosinophils # (Auto) 0.2 TH/MM3 Basophils # (Auto) 0.1 TH/MM3 CBC Comment DIFF FINAL Differential Comment Blood Urea Nitrogen 25 MG/DL Creatinine 1.27 MG/DL Random Glucose 116 MG/DL Total Protein 7.5 GM/DL Albumin 3.6 GM/DL Calcium Level 8.4 MG/DL Alkaline Phosphatase 58 U/L Aspartate Amino Transf (AST/SGOT) 14 U/L Alanine Aminotransferase (ALT/SGPT) 23 U/L Total Bilirubin 0.3 MG/DL Sodium Level 141 MEQ/L Potassium Level 3.7 MEQ/L Chloride Level 106 MEQ/L Carbon Dioxide Level 27.8 MEQ/L Anion Gap 7 MEQ/L Estimat Glomerular Filtration Rate 64 ML/MIN Ethyl Alcohol Level LESS THAN 3 MG/DL Urine Opiates Screen NEG Urine Barbiturates Screen NEG Urine Amphetamines Screen NEG Urine Benzodiazepines Screen POS Urine Cocaine Screen NEG Urine Cannabinoids Screen NEG Mental Status Examination Appearance His panic man, with marked albinism, [facility], good hygiene, calm and cooperative Speech: Unremarkable Orientation: x3 Memory: Unremarkable Thought Process: Logical Thought Content: Unremarkable Hallucination Type: None Attention and Concentration: Good Suicidal Ideation: No Previous Suicide Attempts: No Homicidal Ideation: No Previous Homicide Attempts: No Insight: Good Judgment: WNL Affect: Good Affect if Inappropriate: Flat Mood: Appropriate Motor Activity: Normal gait Assessment & Plan Problem List: (1) Adjustment disorder with disturbance of conduct ICD Codes: F43.24 - Adjustment disorder with disturbance of conduct Status: Acute Assessment & Plan: At the moment of this evaluation the patient is calm, cooperative and pleasant. Denies depressive symptoms, denies anxiety, denies yun and psychosis. He denies suicidal and homicidal ideation. He denies visual and auditory hallucinations. He is very possible that recent suicidal statement was secondary to poor impulse control the is very common in patients with borderline, mild to moderate intellectual disability. She has an excellent outpatient care, he says that he is compliant with his medications. He was educated about the importance to continue compliant with medications and psychiatric recommendations. He does not meet criteria for psychiatric admission. Patient will be discharged back to his house. Welsh act will be lifted. Assessment & Plan Estimated LOS: Mendoza Castillo MD Aug 14, 2017 13:19
[2017-08-14] MEDS ORDERED: levETIRAcetam 500 MG TAB PO ONE (23:00)
[2017-08-14] MEDS ORDERED: HALOPERIDOL 0.5 MG TAB PO ONE (23:00)
[2017-08-14] MEDS ORDERED: DIVALPROEX SODIUM E.R. 500 MG TAB PO ONE (23:00)
--- NOTE | 2017-08-14 23:55 | PD ---
Physical Exam Time Seen by Provider: 23:52 Narrative Pt was seen and evaluated by previous provider, medically cleared, with BA lifted, then discharged home. His ride has not yet arrived and the patient has been in the ED all day. His ride is anticipated around 1230 tomorrow. Data Data Last Documented VS Vital Signs Date Time Temp Pulse Resp B/P (MAP) Pulse Ox O2 Delivery O2 Flow Rate FiO2 08/14/17 11:50 08/14/17 07:50 97.3 88 13 99 Room Air Orders Orders Complete Blood Count With Diff (08/14/17 00:02) Comprehensive Metabolic Panel (08/14/17 00:02) Psych Screen (08/14/17 00:02) Drug Screen, Random Urine (08/14/17 00:02) Alcohol (Ethanol) (08/14/17 00:02) Diet Regular Basic (08/14/17 Breakfast) Diet Regular Basic (08/14/17 Dinner) Divalproex Er (Depakote Er) (08/14/17 23:00) Haloperidol (Haldol) (08/14/17 23:00) Levetiracetam (Keppra) (08/14/17 23:00) Lorazepam Inj (Ativan Inj) (08/15/17 00:00) Labs Laboratory Tests Test 08/14/17 00:00 08/14/17 09:28 White Blood Count 6.8 TH/MM3 Red Blood Count 4.49 MIL/MM3 Hemoglobin 13.5 GM/DL Hematocrit 39.4 % Mean Corpuscular Volume 87.9 FL Mean Corpuscular Hemoglobin 30.0 PG Mean Corpuscular Hemoglobin Concent 34.1 % Red Cell Distribution Width 13.3 % Platelet Count 241 TH/MM3 Mean Platelet Volume 8.4 FL Neutrophils (%) (Auto) 46.2 % Lymphocytes (%) (Auto) 42.7 % Monocytes (%) (Auto) 7.0 % Eosinophils (%) (Auto) 3.0 % Basophils (%) (Auto) 1.1 % Neutrophils # (Auto) 3.1 TH/MM3 Lymphocytes # (Auto) 2.9 TH/MM3 Monocytes # (Auto) 0.5 TH/MM3 Eosinophils # (Auto) 0.2 TH/MM3 Basophils # (Auto) 0.1 TH/MM3 CBC Comment DIFF FINAL Differential Comment Blood Urea Nitrogen 25 MG/DL Creatinine 1.27 MG/DL Random Glucose 116 MG/DL Total Protein 7.5 GM/DL Albumin 3.6 GM/DL Calcium Level 8.4 MG/DL Alkaline Phosphatase 58 U/L Aspartate Amino Transf (AST/SGOT) 14 U/L Alanine Aminotransferase (ALT/SGPT) 23 U/L Total Bilirubin 0.3 MG/DL Sodium Level 141 MEQ/L Potassium Level 3.7 MEQ/L Chloride Level 106 MEQ/L Carbon Dioxide Level 27.8 MEQ/L Anion Gap 7 MEQ/L Estimat Glomerular Filtration Rate 64 ML/MIN Ethyl Alcohol Level LESS THAN 3 MG/DL Urine Opiates Screen NEG Urine Barbiturates Screen NEG Urine Amphetamines Screen NEG Urine Benzodiazepines Screen POS Urine Cocaine Screen NEG Urine Cannabinoids Screen NEG MDM Medical Record Reviewed: Yes Supervised Visit with ANDREW: No Narrative Course Pt has been given his PM meds. He continues to be agitated and yell intermittent random threats. When spoken to, he is angry his ride has not yet arrived. I have offered reassurance and reminded him of the estimated time his ride will be here. At this point, I will give him Ativan to ease his agitation. Diagnosis Primary Impression: Adjustment disorder with disturbance of conduct Additional Impression: Medical clearance for psychiatric admission Patient Instructions: General Instructions Departure Forms: Tests/Procedures Additional Instruction: Take medications as prescribed return as needed. Disposition: 01 DISCHARGE HOME Condition: Stable HannaMag villegas AVIVA Aug 14, 2017 23:55
[2017-08-15] MEDS ORDERED: QUEtiapine FUMARATE 300 MG TAB PO ONE
[2017-08-15] MEDS ORDERED: LORazepam 2 MG/ML VIAL IM ONE
== END 2017-08-15 15:39 | disposition home or self-care (01) ==
LOC: NEPD 23:45 → NED 23:45 → NEPD 08-14 11:52
DX: F43.24 Adjustment disorder with disturbance of conduct (principal); Z79.899 Other long term (current) drug therapy
CPT/HCPCS: 80053; 80307; 85025; 96372; 99284; J2060

== ENCOUNTER 2017-11-28 21:12 | Emergency (ER) | payer MEDICARE, OTHER ==
[~2017-11-28] VITALS: Ht 177.8 cm; Wt 80.0 kg
[2017-11-28 21:48] VITALS: BP 142/80; PULSE 100; RESP 18; TEMP 98.4; O2SAT 96
[2017-11-28 21:58] LABS: AUTOMATED NEUTROPHIL # 3.4 TH/MM3 (1.8-7.7); BASOPHIL % 0.5 % (0.0-2.0); EOSINOPHIL # 0.2 TH/MM3 (0-0.4); EOSINOPHIL % 3.3 % (0.0-4.0); HEMATOCRIT 37.9 % (39.0-51.0); HEMOGLOBIN 13.2 GM/DL (13.0-17.0); LYMPH % 31.5 % (9.0-44.0); LYMPHOCYTE # 2.2 TH/MM3 (1.0-4.8); MEAN CELL VOLUME 90.3 FL (80.0-100.0); MEAN CORPUSCULAR HEMOGLOBIN 31.5 PG (27.0-34.0); MEAN CORPUSCULAR HGB CONC 34.9 % (32.0-36.0); MEAN PLATELET VOLUME 8.4 FL (7.0-11.0); MONOCYTE # 1.1 TH/MM3 (0-0.9); NEUT % 48.7 % (16.0-70.0); PLATELET COUNT 225 TH/MM3 (150-450); RED BLOOD COUNT 4.19 MIL/MM3 (4.50-5.90); RED CELL DISTRIBUTION WIDTH 12.8 % (11.6-17.2)
[2017-11-28 22:26] LABS: ALBUMIN 3.6 GM/DL (3.4-5.0); AST (GOT) 82 U/L (15-37); BICARBONATE 26.8 MEQ/L (21.0-32.0); BLOOD UREA NITROGEN 25 MG/DL (7-18); CHLORIDE 103 MEQ/L (98-107); GLOMERULAR FILTRATION RATE 68 ML/MIN (>89); GLUCOSE,RANDOM 112 MG/DL (74-106); SODIUM (NA) 139 MEQ/L (136-145)
[2017-11-28 22:28] LABS: ALT (GPT) 155 U/L (12-78)
[2017-11-28 22:30] LABS: ALKALINE PHOSPHATASE 66 U/L (45-117); TOTAL BILIRUBIN ADULT 0.3 MG/DL (0.2-1.0)
[2017-11-28 22:35] LABS: ACETAMINOPHEN LESS THAN 2.0 MCG/ML (10.0-30.0)
[2017-11-28 23:25] VITALS: BP 141/85; PULSE 99; RESP 17; TEMP 97.9; O2SAT 99
[2017-11-29 03:39] VITALS: BP 159/89; PULSE 106; RESP 18; TEMP 98.2; O2SAT 98
--- NOTE | 2017-11-29 04:24 | PD ---
HPI Chief Complaint: Psychiatric Symptoms Time Seen by Provider: 04:20 Travel History International Travel<30 days: No Contact w/Intl Traveler<30days: No Traveled to known affect area: No History of Present Illness HPI 37-year-old white male presents to emergency department under [place] act by PD. The patient lives in a senior living. He states that he was upset with one of the caretakers. He stated that they were not can have a libertarian for New Year's. He was also told that he could eat his cake from [employer] but she stated that he could only eat it after dinner. He stated to her that he would like to . The patient stated that he was merely upset because he would've rather gone to his mother's house for New Year's where he would've had a lot to eat and he could've gone dancing. Patient denies any true suicidal ideation. Patient denies any homicidal ideation. No toxic ingestions. No medical complaints. PFSH Past Medical History Bipolar Disorder: Yes Anxiety: No Depression: Yes Cancer: No Cardiovascular Problems: No Diminished Hearing: No Endocrine: No Genitourinary: No Hiatal Hernia: Yes Immune Disorder: No Implanted Vascular Access Dvce: No Medical other: Yes (INTELLECTUAL LIMITATIONS) Musculoskeletal: No Neurologic: No Psychiatric: Yes Reproductive: No Respiratory: No Immunizations Current: Yes Seizures: Yes Thyroid Disease: Yes (HYPO) Tetanus Vaccination: < 5 Years Past Surgical History Appendectomy: Yes Other Surgery: No Social History Alcohol Use: No Tobacco Use: No Substance Use: No Allergies-Medications (Allergen,Severity, Reaction): Coded Allergies: No Known Allergies (Verified Adverse Reaction, Unknown, 11/28/17) Reported Meds & Prescriptions Reported Meds & Active Scripts Active Quetiapine (Quetiapine Fumarate) 200 Mg Tab 600 Mg PO HS 15 Days Carnitor Liq (Levocarnitine) 1 Gm/10 Ml Soln 3 Ml PO TID 15 Days Depakote ER (Divalproex Sodium) 500 Mg Criss 500 Mg PO BID 15 Days Reported Haloperidol 0.5 Mg Tab 0.5 Mg PO BID Keppra (Levetiracetam) 500 Mg Tab 500 Mg PO BID Levothyroxine (Levothyroxine Sodium) 125 Mcg Tab 125 Mcg PO DAILY Zoloft (Sertraline HCl) 100 Mg Tab 100 Mg PO DAILY Review of Systems General / Constitutional: No: Fever Eyes: No: Visual changes HENT: No: Headaches Cardiovascular: No: Chest Pain or Discomfort Respiratory: No: Shortness of Breath Gastrointestinal: No: Abdominal Pain Genitourinary: No: Dysuria Musculoskeletal: No: Pain Skin: No Rash Neurologic: No: Weakness Psychiatric: Positive: Depression, Suicidal Ideations, Mood Disorder, No: Anxiety, Disorder of Thought, Substance Abuse, Homicidal Ideation Endocrine: No: Polydipsia Hematologic/Lymphatic: No: Easy Bruising Physical Exam Narrative GENERAL: Well-nourished, well-developed patient. SKIN: Warm and dry. HEAD: Normocephalic and atraumatic. EYES: No scleral icterus. No injection or drainage. ENT: No nasal drainage noted. Mucous membranes pink. Airway patent. NECK: Supple, trachea midline. Moves head freely without obvious discomfort. CARDIOVASCULAR: Regular rate and rhythm without murmurs, gallops, or rubs. RESPIRATORY: Breath sounds equal bilaterally. No accessory muscle use. GASTROINTESTINAL: Abdomen soft, non-tender, nondistended. EXTREMITIES: No cyanosis or edema. BACK: Nontender without obvious deformity. No CVA tenderness. NEURO: Patient is alert and oriented. no sensorimotor deficits. Nonfocal. Normal speech. PSYCH: No delusions. No auditory or visual hallucinations. Data Data Last Documented VS Vital Signs Date Time Temp Pulse Resp B/P (MAP) Pulse Ox O2 Delivery O2 Flow Rate FiO2 11/29/17 03:39 98.2 106 18 159/89 (112) 98 11/28/17 23:25 Room Air Orders Orders Complete Blood Count With Diff (11/28/17 21:40) Comprehensive Metabolic Panel (11/28/17 21:40) Psych Screen (11/28/17 21:40) Drug Screen, Random Urine (11/28/17 21:40) Alcohol (Ethanol) (11/28/17 21:40) Salicylates (Aspirin) (11/28/17 21:58) Tylenol (Acetaminophen) (11/28/17 21:40) Valproic Acid (Depakene) (11/28/17 21:40) Labs Laboratory Tests Test 11/28/17 21:40 White Blood Count 7.0 TH/MM3 Red Blood Count 4.19 MIL/MM3 Hemoglobin 13.2 GM/DL Hematocrit 37.9 % Mean Corpuscular Volume 90.3 FL Mean Corpuscular Hemoglobin 31.5 PG Mean Corpuscular Hemoglobin Concent 34.9 % Red Cell Distribution Width 12.8 % Platelet Count 225 TH/MM3 Mean Platelet Volume 8.4 FL Neutrophils (%) (Auto) 48.7 % Lymphocytes (%) (Auto) 31.5 % Monocytes (%) (Auto) 16.0 % Eosinophils (%) (Auto) 3.3 % Basophils (%) (Auto) 0.5 % Neutrophils # (Auto) 3.4 TH/MM3 Lymphocytes # (Auto) 2.2 TH/MM3 Monocytes # (Auto) 1.1 TH/MM3 Eosinophils # (Auto) 0.2 TH/MM3 Basophils # (Auto) 0.0 TH/MM3 CBC Comment DIFF FINAL Differential Comment Blood Urea Nitrogen 25 MG/DL Creatinine 1.20 MG/DL Random Glucose 112 MG/DL Total Protein 8.0 GM/DL Albumin 3.6 GM/DL Calcium Level 9.0 MG/DL Alkaline Phosphatase 66 U/L Aspartate Amino Transf (AST/SGOT) 82 U/L Alanine Aminotransferase (ALT/SGPT) 155 U/L Total Bilirubin 0.3 MG/DL Sodium Level 139 MEQ/L Potassium Level 4.2 MEQ/L Chloride Level 103 MEQ/L Carbon Dioxide Level 26.8 MEQ/L Anion Gap 9 MEQ/L Estimat Glomerular Filtration Rate 68 ML/MIN Salicylates Level LESS THAN 1.7 MG/DL Urine Opiates Screen NEG Acetaminophen Level LESS THAN 2.0 MCG/ML Urine Barbiturates Screen NEG Valproic Acid (Depakene) Level 69 MCG/ML Urine Amphetamines Screen NEG Urine Benzodiazepines Screen POS Urine Cocaine Screen NEG Urine Cannabinoids Screen NEG Ethyl Alcohol Level LESS THAN 3 MG/DL MDM Medical Decision Making Medical Screen Exam Complete: Yes Emergency Medical Condition: Yes Medical Record Reviewed: Yes Interpretation(s) Laboratory Tests Test 11/28/17 21:40 White Blood Count 7.0 TH/MM3 Red Blood Count 4.19 MIL/MM3 Hemoglobin 13.2 GM/DL Hematocrit 37.9 % Mean Corpuscular Volume 90.3 FL Mean Corpuscular Hemoglobin 31.5 PG Mean Corpuscular Hemoglobin Concent 34.9 % Red Cell Distribution Width 12.8 % Platelet Count 225 TH/MM3 Mean Platelet Volume 8.4 FL Neutrophils (%) (Auto) 48.7 % Lymphocytes (%) (Auto) 31.5 % Monocytes (%) (Auto) 16.0 % Eosinophils (%) (Auto) 3.3 % Basophils (%) (Auto) 0.5 % Neutrophils # (Auto) 3.4 TH/MM3 Lymphocytes # (Auto) 2.2 TH/MM3 Monocytes # (Auto) 1.1 TH/MM3 Eosinophils # (Auto) 0.2 TH/MM3 Basophils # (Auto) 0.0 TH/MM3 CBC Comment DIFF FINAL Differential Comment Blood Urea Nitrogen 25 MG/DL Creatinine 1.20 MG/DL Random Glucose 112 MG/DL Total Protein 8.0 GM/DL Albumin 3.6 GM/DL Calcium Level 9.0 MG/DL Alkaline Phosphatase 66 U/L Aspartate Amino Transf (AST/SGOT) 82 U/L Alanine Aminotransferase (ALT/SGPT) 155 U/L Total Bilirubin 0.3 MG/DL Sodium Level 139 MEQ/L Potassium Level 4.2 MEQ/L Chloride Level 103 MEQ/L Carbon Dioxide Level 26.8 MEQ/L Anion Gap 9 MEQ/L Estimat Glomerular Filtration Rate 68 ML/MIN Salicylates Level LESS THAN 1.7 MG/DL Urine Opiates Screen NEG Acetaminophen Level LESS THAN 2.0 MCG/ML Urine Barbiturates Screen NEG Valproic Acid (Depakene) Level 69 MCG/ML Urine Amphetamines Screen NEG Urine Benzodiazepines Screen POS Urine Cocaine Screen NEG Urine Cannabinoids Screen NEG Ethyl Alcohol Level LESS THAN 3 MG/DL Differential Diagnosis MDM: High Differential diagnoses: Schizophrenia, schizoaffective disorder, bipolar, anxiety, depression, adjustment reaction, mood disorder NOS, ODD, depressive disorder NOS, dementia, dementia with agitation, psychosis NOS, substance induced mood disorder, DMDD, Asperger syndrome, infection,electrolyte abnormality, malingering. Narrative Course Mental health screening discussed with the patient. Psychiatric screen ordered. The patient has been medically cleared. This is medical clearance for psychiatric admission Diagnosis Primary Impression: Medical clearance for psychiatric admission Condition: Jordan Camarena Nov 29, 2017 04:24
--- NOTE | 2017-11-29 11:00 | PD ---
History of Present Illness Chief Complaint: Psychiatric Symptoms Time Seen by Provider: 10:45 Travel History International Travel<30 Days: No Contact w/Intl Traveler<30days: No Known affected area: No Legal Status Legal Status: Welsh Act Welsh Act Signed By: Mateo Guerrero History of Present Illness: 37-year-old cognitively limited male seen under a Welsh act for making suicidal threats. At this point the patient is calm, pleasant and cooperative. He denies any suicidal or homicidal ideation, plan or intent. In fact, he is willing to apologize for making this statement. He simply reports getting into an argument with his roommate. His cognition is felt to be baseline. He demonstrates no psychotic thinking. He is verbally drew for safety and he is competent to do so. He has been calm, pleasant and cooperative since arriving in this emergency department. PFSH Past Medical History Bipolar Disorder: Yes Anxiety: No Depression: Yes Cancer: No Cardiovascular Problems: No Diminished Hearing: No Endocrine: No Genitourinary: No Hiatal Hernia: Yes Immune Disorder: No Implanted Vascular Access Dvce: No Medical other: Yes (INTELLECTUAL LIMITATIONS) Musculoskeletal: No Neurologic: No Psychiatric: Yes Reproductive: No Respiratory: No Immunizations Current: Yes Seizures: Yes Thyroid Disease: Yes (HYPO) Tetanus Vaccination: < 5 Years Past Surgical History Appendectomy: Yes Other Surgery: No Psychiatric History Psychiatric History Hx Psychiatric Treatment: LAST ADMISSION WAS IN JUN 2017. PATIENT HAS 2 MEDICAL RECORDS. REPORTS THAT HIS DOCTOR COMES TO THE HOUSE. HE DOES NOT REMEMBER THE NAME History of Inpatient Treatment: Yes Guns or firearms in home: No Social History Hx Alcohol Use: No Hx Tobacco Use: No Hx Substance Use: No Hx of Substance Use Treatment: No Allergies-Medications (Allergen,Severity, Reaction): Coded Allergies: No Known Allergies (Verified Adverse Reaction, Unknown, 11/28/17) Reported Meds & Prescriptions Reported Meds & Active Scripts Active Quetiapine (Quetiapine Fumarate) 200 Mg Tab 600 Mg PO HS 15 Days Carnitor Liq (Levocarnitine) 1 Gm/10 Ml Soln 3 Ml PO TID 15 Days Depakote ER (Divalproex Sodium) 500 Mg Criss 500 Mg PO BID 15 Days Reported Haloperidol 0.5 Mg Tab 0.5 Mg PO BID Keppra (Levetiracetam) 500 Mg Tab 500 Mg PO BID Levothyroxine (Levothyroxine Sodium) 125 Mcg Tab 125 Mcg PO DAILY Zoloft (Sertraline HCl) 100 Mg Tab 100 Mg PO DAILY Review of Systems Except as stated in HPI: all other systems reviewed are Neg Mental Status Examination Appearance: Appropriate Consciousness: Alert Orientation: x4 Motor Activity: Normal gait Speech: Unremarkable Language: Adequate Fund of Knowledge: Adequate Attention and Concentration: Adequate Memory: Unremarkable Mood: Appropriate Affect: Appropriate Thought Process & Associations: Intact Thought Content: Appropriate Hallucination Type: None Delusion Type: None Suicidal Ideation: No Suicidal Plan: No Suicidal Intention: No Homicidal Ideation: No Homicidal Plan: No Homicidal Intention: No Insight: Adequate Judgment: Adequate MDM Medical Decision Making Medical Record Reviewed: Yes Assessment/Plan Medical record reviewed. Patient interviewed at bedside. Case discussed with nurse Hensley. He does not meet criteria for Welsh act or psychiatric hospitalization. He would like to go home and is verbally and competently drew for safety. This physician does not see current significant objective clinical evidence of bipolar disorder, schizophrenia, schizoaffective disorder, etc. Orders Orders Complete Blood Count With Diff (11/28/17 21:40) Comprehensive Metabolic Panel (11/28/17 21:40) Psych Screen (11/28/17 21:40) Drug Screen, Random Urine (11/28/17 21:40) Alcohol (Ethanol) (11/28/17 21:40) Salicylates (Aspirin) (11/28/17 21:58) Tylenol (Acetaminophen) (11/28/17 21:40) Valproic Acid (Depakene) (11/28/17 21:40) Diet Regular Basic (11/29/17 Breakfast) Results Vital Signs Date Time Temp Pulse Resp B/P (MAP) Pulse Ox O2 Delivery O2 Flow Rate FiO2 11/29/17 03:39 98.2 106 18 159/89 (112) 98 11/28/17 23:25 97.9 99 17 141/85 (103) 99 Room Air 11/28/17 21:48 98.4 100 18 142/80 (100) 96 Laboratory Tests Test 11/28/17 21:40 White Blood Count 7.0 Red Blood Count 4.19 Hemoglobin 13.2 Hematocrit 37.9 Mean Corpuscular Volume 90.3 Mean Corpuscular Hemoglobin 31.5 Mean Corpuscular Hemoglobin Concent 34.9 Red Cell Distribution Width 12.8 Platelet Count 225 Mean Platelet Volume 8.4 Neutrophils (%) (Auto) 48.7 Lymphocytes (%) (Auto) 31.5 Monocytes (%) (Auto) 16.0 Eosinophils (%) (Auto) 3.3 Basophils (%) (Auto) 0.5 Neutrophils # (Auto) 3.4 Lymphocytes # (Auto) 2.2 Monocytes # (Auto) 1.1 Eosinophils # (Auto) 0.2 Basophils # (Auto) 0.0 CBC Comment DIFF FINAL Differential Comment Blood Urea Nitrogen 25 Creatinine 1.20 Random Glucose 112 Total Protein 8.0 Albumin 3.6 Calcium Level 9.0 Alkaline Phosphatase 66 Aspartate Amino Transf (AST/SGOT) 82 Alanine Aminotransferase (ALT/SGPT) 155 Total Bilirubin 0.3 Sodium Level 139 Potassium Level 4.2 Chloride Level 103 Carbon Dioxide Level 26.8 Anion Gap 9 Estimat Glomerular Filtration Rate 68 Salicylates Level LESS THAN 1.7 Urine Opiates Screen NEG Acetaminophen Level LESS THAN 2.0 Urine Barbiturates Screen NEG Valproic Acid (Depakene) Level 69 Urine Amphetamines Screen NEG Urine Benzodiazepines Screen POS Urine Cocaine Screen NEG Urine Cannabinoids Screen NEG Ethyl Alcohol Level LESS THAN 3 Diagnosis Primary Impression: Adjustment disorder with mixed disturbance of emotions and conduct Condition: Stable Joshua Mobley MD Nov 29, 2017 11:00
--- NOTE | 2017-11-29 11:58 | PD ---
Physical Exam Date Seen by Provider: Nov 29, 2017 Time Seen by Provider: 11:56 Narrative For full history and physical examination please see previous provider's notes. Data Data Last Documented VS Vital Signs Date Time Temp Pulse Resp B/P (MAP) Pulse Ox O2 Delivery O2 Flow Rate FiO2 11/29/17 03:39 98.2 106 18 159/89 (112) 98 11/28/17 23:25 Room Air Orders Orders Complete Blood Count With Diff (11/28/17 21:40) Comprehensive Metabolic Panel (11/28/17 21:40) Psych Screen (11/28/17 21:40) Drug Screen, Random Urine (11/28/17 21:40) Alcohol (Ethanol) (11/28/17 21:40) Salicylates (Aspirin) (11/28/17 21:58) Tylenol (Acetaminophen) (11/28/17 21:40) Valproic Acid (Depakene) (11/28/17 21:40) Diet Regular Basic (11/29/17 Breakfast) Ed Discharge Order (11/29/17 11:55) Labs Laboratory Tests Test 11/28/17 21:40 White Blood Count 7.0 TH/MM3 Red Blood Count 4.19 MIL/MM3 Hemoglobin 13.2 GM/DL Hematocrit 37.9 % Mean Corpuscular Volume 90.3 FL Mean Corpuscular Hemoglobin 31.5 PG Mean Corpuscular Hemoglobin Concent 34.9 % Red Cell Distribution Width 12.8 % Platelet Count 225 TH/MM3 Mean Platelet Volume 8.4 FL Neutrophils (%) (Auto) 48.7 % Lymphocytes (%) (Auto) 31.5 % Monocytes (%) (Auto) 16.0 % Eosinophils (%) (Auto) 3.3 % Basophils (%) (Auto) 0.5 % Neutrophils # (Auto) 3.4 TH/MM3 Lymphocytes # (Auto) 2.2 TH/MM3 Monocytes # (Auto) 1.1 TH/MM3 Eosinophils # (Auto) 0.2 TH/MM3 Basophils # (Auto) 0.0 TH/MM3 CBC Comment DIFF FINAL Differential Comment Blood Urea Nitrogen 25 MG/DL Creatinine 1.20 MG/DL Random Glucose 112 MG/DL Total Protein 8.0 GM/DL Albumin 3.6 GM/DL Calcium Level 9.0 MG/DL Alkaline Phosphatase 66 U/L Aspartate Amino Transf (AST/SGOT) 82 U/L Alanine Aminotransferase (ALT/SGPT) 155 U/L Total Bilirubin 0.3 MG/DL Sodium Level 139 MEQ/L Potassium Level 4.2 MEQ/L Chloride Level 103 MEQ/L Carbon Dioxide Level 26.8 MEQ/L Anion Gap 9 MEQ/L Estimat Glomerular Filtration Rate 68 ML/MIN Salicylates Level LESS THAN 1.7 MG/DL Urine Opiates Screen NEG Acetaminophen Level LESS THAN 2.0 MCG/ML Urine Barbiturates Screen NEG Valproic Acid (Depakene) Level 69 MCG/ML Urine Amphetamines Screen NEG Urine Benzodiazepines Screen POS Urine Cocaine Screen NEG Urine Cannabinoids Screen NEG Ethyl Alcohol Level LESS THAN 3 MG/DL MDM Medical Record Reviewed: Yes Supervised Visit with ANDREW: No Narrative Course Patient is a 37-year-old male that was brought into the emergency Department under [facility] act for making suicidal threats. Patient was seen and evaluated in the emergency department and medically cleared. He was then seen and evaluated by a psychiatrist who reported that patient did not demonstrate any psychotic thinking and was verbally drew for safety and was felt to be competent to do so. Welsh act has been lifted. Patient will be discharged home. Diagnosis Primary Impression: Adjustment disorder with mixed disturbance of emotions and conduct Referrals: [facility] Patient Instructions: General Instructions Additional Instruction: Return to emergency department immediately for any new or worsening symptoms Follow-up with Mk Lindsey Follow-up with your primary doctor Disposition: 01 DISCHARGE HOME Condition: Stable Gisselle Jimenez Nov 29, 2017 11:58
== END 2017-11-29 13:14 | disposition home or self-care (01) ==
LOC: NEPJ 21:12
DX: F43.25 Adjustment disorder with mixed disturbance of emotions and conduct (principal); R45.851 Suicidal ideations; F31.9 Bipolar disorder, unspecified; E03.9 Hypothyroidism, unspecified; Z79.899 Other long term (current) drug therapy
CPT/HCPCS: 80053; 80164; 80307; 85025; 99283